=== PATIENT | male | born 1965 | race American Indian/Alaskan Native ===

== ENCOUNTER 2021-01-08 16:03 | Emergency (ER) | payer MEDICAID ==
--- NOTE | 2021-01-08 16:33 | Emergency Department Report ---
ED Chest Pain HPI - General Chief Complaint: Chest Pain Stated Complaint: CHEST PAIN Time Seen by Provider: 01/08/21 16:21 Source: EMS Mode of arrival: Stretcher Limitations: No Limitations - History of Present Illness Initial Comments: 55-year-old male, history of hypertension, sleep apnea, GERD, noncompliant with medications x1 year, presents to ED with chest pain. Patient states he recently moved to the [facility]. Patient states he was on break at work, stepped outside to smoke half of a cigarette, came back in and began experiencing severe chest pain. States pain was substernal, pressure-like, nonradiating. He reports associated diaphoresis. He denies any nausea or vomiting. Patient states he has been having some chest pain and dyspnea on exertion over the past week. Patient states the chest pain was much worse today. He also states that he has noticed some edema in bilateral lower extremities and his abdominal area. Patient denies any history of congestive heart failure. Patient reports tobacco and marijuana use. Denies any other drugs. Reports only occasional alcohol use. Patient denies having received his COVID-19 vaccine. MD Complaint: chest pain -: hour(s) (3) Onset: during rest Pain Location: substernal Pain Radiation: none Severity: severe Severity scale (0 -10): 8 Quality: pressure Consistency: constant Improves With: nothing Worsens With: nothing Other Symptoms: cough, leg swelling. denies: fever Treatments Prior to Arrival: aspirin - Related Data Previous Rx's Medication Instructions Recorded Last Taken Type Aspirin 325 mg PO QDAY #30 tablet 01/08/21 Unknown Rx Simvastatin 10 mg PO QHS #30 tablet 01/08/21 Unknown Rx amLODIPine 10 mg PO DAILY #30 tab 01/08/21 Unknown Rx hydroCHLOROthiazide [Hctz] 12.5 mg PO QDAY #30 capsule 01/08/21 Unknown Rx Allergies Allergy/AdvReac Type Severity Reaction Status Date / Time lisinopril Allergy Angioedema Verified 01/08/21 16:14 Heart Score - HEART Score History: Moderately suspicious EKG: Non-specific Age: 45-65 Risk factors: > 3 risk factors or hx of atherosclerotic disease Troponin: < normal limit HEART Score: 5 - EKG Read Time Time EKG Completed: 16:19 EKG Read Time: 16:19 ED Review of Systems ROS: Stated complaint: CHEST PAIN Other details as noted in HPI Comment: All other systems reviewed and negative Constitutional: denies: fever Respiratory: cough, orthopnea, SOB with exertion Cardiovascular: chest pain, edema Gastrointestinal: denies: nausea, vomiting ED Past Medical Hx - Social History Smoking Status: Current Every Day Smoker Substance Use Type: Marijuana - Medications Home Medications: Home Medications Medication Instructions Recorded Confirmed Last Taken Type Aspirin 325 mg PO QDAY #30 tablet 01/08/21 Unknown Rx Simvastatin 10 mg PO QHS #30 tablet 01/08/21 Unknown Rx amLODIPine 10 mg PO DAILY #30 tab 01/08/21 Unknown Rx hydroCHLOROthiazide [Hctz] 12.5 mg PO QDAY #30 capsule 01/08/21 Unknown Rx ED Physical Exam - General Limitations: No Limitations General appearance: alert, in no apparent distress, obese - Head Head exam: Present: atraumatic, normocephalic - Eye Eye exam: Present: normal appearance, EOMI - ENT ENT exam: Present: mucous membranes moist - Neck Neck exam: Present: normal inspection - Respiratory Respiratory exam: Present: normal lung sounds bilaterally. Absent: respiratory distress - Cardiovascular Cardiovascular Exam: Present: normal rhythm, tachycardia - GI/Abdominal GI/Abdominal exam: Present: soft, other (2+ pitting edema to abdominal wall). Absent: distended, tenderness - Extremities Exam Extremities exam: Present: normal inspection, other (2+ pitting edema BLE) - Neurological Exam Neurological exam: Present: alert, oriented X3 - Psychiatric Psychiatric exam: Present: normal affect, normal mood - Skin Skin exam: Present: warm, dry, intact, normal color ED Course Vital Signs 01/08/21 01/08/21 01/08/21 16:07 16:12 16:49 Temperature 98.9 F Pulse Rate 145 H 143 H 139 H Respiratory 22 19 Rate Blood Pressure 168/124 Blood Pressure 179/120 [Left] O2 Sat by Pulse 98 98 Oximetry 01/08/21 01/08/21 01/08/21 16:57 18:05 18:13 Temperature Pulse Rate 144 H 137 H 140 H Respiratory 19 20 Rate Blood Pressure 179/117 Blood Pressure 165/112 179/117 [Left] O2 Sat by Pulse 97 97 Oximetry 01/08/21 01/08/21 01/08/21 18:14 18:19 18:25 Temperature Pulse Rate 142 H 141 H 118 H Respiratory 19 Rate Blood Pressure 173/122 Blood Pressure 165/110 [Left] O2 Sat by Pulse 99 Oximetry 01/08/21 01/08/21 18:55 18:59 Temperature Pulse Rate 108 H 124 H Respiratory 19 Rate Blood Pressure 165/110 Blood Pressure 165/100 [Left] O2 Sat by Pulse 100 Oximetry ED Medical Decision Making - Lab Data Result diagrams: 01/08/21 16:41 01/08/21 16:41 - EKG Data -: EKG Interpreted by Ne EKG shows normal: sinus rhythm Rate: tachycardia (rate 143) - EKG Data Interpretation: nonspecific ST-T wave sivan, other (RBBB, prolonged QT) - Radiology Data Radiology results: report reviewed, image reviewed - Medical Decision Making 55-year-old male presents to ED with chest pain, elevated blood pressure, tachycardia. EKG shows right bundle branch block, no ST elevations present. Patient has been given aspirin by EMS. He received sublingual nitro, hydralazine here in the ED for blood pressure management. Blood pressure did improve. Patient underwent CTA, which was negative for PE or any other pathology. BNP is elevated, however no evidence of pulmonary edema. Patient does have 2+ pitting edema to bilateral lower extremities and abdominal wall. Patient was initially tachycardic into the 140s, however this tachycardia improved greatly with metoprolol. Troponin is negative. Chest pain improved with aspirin and nitro. Patient may have new onset CHF. I spoke with Dr. Frances, hospitalist, regarding admission and further management. - Differential Diagnosis ACS, PE, new onset CHF Critical Care Time: Yes Critical care time in (mins) excluding proc time.: 35 Critical care attestation.: If time is entered above; I have spent that time in minutes in the direct care of this critically ill patient, excluding procedure time. Critical Care Time: 35 min ED Disposition Clinical Impression: Hypertensive emergency, Peripheral edema, Acute chest pain, Tachycardia Disposition: OP ADMIT IP TO THIS HOSP Is pt being admited?: Yes Condition: Stable Instructions: Chest Pain (ED), Hypertension (ED) Prescriptions: Simvastatin 10 mg PO QHS #30 tablet amLODIPine 10 mg PO DAILY #30 tab Aspirin 325 mg PO QDAY #30 tablet hydroCHLOROthiazide [Hctz] 12.5 mg PO QDAY #30 capsule Referrals: PRIMARY CARE, [Primary Care Provider] - 3-5 Days Time of Disposition: 18:37
[2021-01-08] MEDS ORDERED: ASPIRIN 325 MG TAB PO ONE (16:35)
[2021-01-08] MEDS ORDERED: hydrALAZINE 20 MG/1 ML INJ IV ONE (16:37)
[2021-01-08] MEDS ORDERED: NITROGLYCERIN 0.4 MG TAB SUBL SL PRN (16:39)
[2021-01-08 16:59] LABS: Basophils # (Auto) 0.1 K/mm3 (0.0-0.1); Basophils % (Auto) 0.7 % (0.0-1.8); Eosinophils # (Auto) 0.1 K/mm3 (0.0-0.4); Eosinophils % (Auto) 0.8 % (0.0-4.3); Hematocrit 41.4 % (35.5-45.6); Hemoglobin 14.3 gm/dl (11.8-15.2); Lymphocytes # (Auto) 1.3 K/mm3 (1.2-5.4); Lymphocytes % (Auto) 12.3 % (13.4-35.0); Mean Corpuscular HGB Conc 35 % (32-34); Mean Corpuscular Volume 92 fl (84-94); Monocytes # (Auto) 0.7 K/mm3 (0.0-0.8); Monocytes % (Auto) 6.5 % (0.0-7.3); Platelet Count 206 K/mm3 (140-440); Red Cell Distribution Width 15.7 % (13.2-15.2)
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
[2021-01-08 17:13] LABS: BUN/Creatinine Ratio 12; Blood Urea Nitrogen 12 mg/dL (9-20); Calcium 8.7 mg/dL (8.4-10.2); Hemolysis Index 13
[2021-01-08 17:18] LABS: Albumin 3.4 g/dL (3.9-5); Bilirubin,Direct 0.3 mg/dL (0-0.2)
[2021-01-08 17:22] LABS: INR 1.04 (0.87-1.13)
[2021-01-08 17:23] LABS: Partial Thromboplastin Time 25.2 Sec. (24.2-36.6)
[2021-01-08] MEDS ORDERED: hydrALAZINE 10 MG TAB PO ONE (18:04)
--- NOTE | 2021-01-08 18:04 | Cat Scan Report ---
CTA chest with contrast INDICATION : chest pain. TECHNIQUE: Axial imaging performed through the chest, with contrast bolus timing set to maximize opa cification of the pulmonary arteries. 3-plane MIP reformatted images were obtained. All CT scans at this location are performed using CT dose reduction for ALARA by means of automated exposure control. 100 mL of intravenous contrast administered. COMPARISON: None FINDINGS: Bolus/PTE: Contrast bolus timing is adequate. No filling defect is present to suggest PTE. Mediastinum: Heart and great vessels appear normal. No pathologic mediastinal adenopathy. Lungs: Mild emphysematous changes in the lungs. No consolidation or effusion. Lungs are otherwise cl ear. Upper abdomen: Limited imaging of the upper abdomen shows nothing acute. Bones: Degenerative changes in the spine with nothing acute. IMPRESSION: Negative for PTE. Clear lungs. Signer Name: Lionel Rider MD Signed: 01/08/2021 6:00 PM Workstation Name: [email or web address]
[2021-01-08] MEDS ORDERED: METOPROLOL TARTRATE 5 MG/5 ML INJ IV ONE (18:15)
--- NOTE | 2021-01-08 18:38 | Event Note ---
Date: 01/08/21 55 YO Male with HTN, GERD, HLD Noncompliant with medication, CHAPIN noncompliant with CPAP presents to ED for evaluation. Patient seen and evaluated in the emergency department. All lab and imaging studies reviewed. Patient complained of chest pain. Upon further questioning and evaluationthe patient localizes the site of his pain in the epigastric area. Patient states that pain is burning in nature, associated with meals, nonradiating. Patient treated" with chest pain protocol. EKG unremarkable without evidence of acute ischemia. D-dimer was elevated but patient underwent CT of the chest which was negative for pulmonary embolus. Patient treated with antihypertensive therapy, as well as PPI therapy with improvement in symptoms. Patient medically optimized and back to usual state of health. Patient counseled regarding increase physical activity at discharge, balanced diet, weight reduction. Patient informed of importance of compliance with CPAP as well as antihypertensive medication. Patient symptoms consistent with atypical chest pain secondary to gastroesophageal reflux disease. Patient discharged home instructed to follow- up with primary care physician within 1 week, cardiology within 1 week, and pulmonary within 1 week for sleep study. Patient instructed to maintain blood pressure log and daily weight log. Patient instructed to follow with primary care physician for age-appropriate screening test as well as risk factor appropriate screening testing. ED Physical Exam - General Limitations: No Limitations General appearance: alert, in no apparent distress, obese - Head Head exam: Present: atraumatic, normocephalic - Eye Eye exam: Present: normal appearance, EOMI - ENT ENT exam: Present: mucous membranes moist - Neck Neck exam: Present: normal inspection - Respiratory Respiratory exam: Present: normal lung sounds bilaterally. Absent: respiratory distress - Cardiovascular Cardiovascular Exam: Present: normal rhythm, tachycardia - GI/Abdominal GI/Abdominal exam: Present: soft, protuberant, obese . Absent: distended, tenderness - Extremities Exam Extremities exam: Present: normal inspection, other (2+ pitting edema BLE) - Neurological Exam Neurological exam: Present: alert, oriented X3 - Psychiatric Psychiatric exam: Present: normal affect, normal mood - Skin Skin exam: Present: warm, dry, intact, normal color
[2021-01-08] MEDS ORDERED: hydroCHLOROthiazide 25 MG TAB PO ONE (19:00)
[2021-01-08] MEDS ORDERED: amLODIPine 5 MG TAB PO ONE (19:00)
[2021-01-08] MEDS ORDERED: PANTOPRAZOLE 40 MG TAB PO ONE (20:00)
[2021-01-08 21:24] VITALS: BP 141/84
--- NOTE | 2021-01-09 17:59 | Electrocardiograph Report ---
[facility] Test Date: 2021-01-08 Test Time: 16:19:41 Pat Name: MIHAELA JIMÉNEZ Department: Room: Gender: M Senior Sales Administrator: NURSE : 1965 Requested By: CURTIS GUTIERREZ Order Number: [id number] Reading MD: Epi Yang Measurements Intervals [place] Rate: 143 P: 78 ID: [id number] QRS: -83 QRSD: 119 T: -64 QT: 345 QTc: 532 Interpretive Statements Atrial flutter with 2-1 AV conduction Incomplete right bundle branch block Prolonged QT interval No previous ECG available for comparison Electronically Signed On 01-09-2021 17:59:16 EDT by Epi Yang
[2021-01-10 01:15] LABS: Chol/HDL Ratio 2.51 %
== END 2021-01-08 21:52 | disposition admitted as inpatient to this hospital (09) ==
LOC: ED 16:03 → UNDOADMOB 18:37 → 4A 18:37 → ED 21:52
DX: I16.1 Hypertensive emergency (principal); R00.0 Tachycardia, unspecified; R60.9 Edema, unspecified; F17.200 Nicotine dependence, unspecified, uncomplicated; F12.90 Cannabis use, unspecified, uncomplicated
CPT/HCPCS: 36415; 71045; 71275; 80048; 80061; 80076; 83880; 84484; 85025; 85379; 85610; 85730; 93005; 96374; 96375; 99285; J0360; Q9967

== ENCOUNTER 2021-03-30 15:34 | Inpatient (IN) | payer MEDICAID ==
[2021-03-30] MEDS ORDERED: dilTIAZem 25 MG/5 ML INJ IV ONE ×2 (17:22→22:17)
[2021-03-30] MEDS ORDERED: ASPIRIN 325 MG TAB PO ONE (17:22)
[2021-03-30 17:23] LABS: Basophils # (Auto) 0.1 K/mm3 (0.0-0.1); Eosinophils # (Auto) 0.5 K/mm3 (0.0-0.4); Hematocrit 39.6 % (35.5-45.6); Hemoglobin 13.4 gm/dl (11.8-15.2); Lymphocytes # (Auto) 2.3 K/mm3 (1.2-5.4); Lymphocytes % (Auto) 24.3 % (13.4-35.0); Mean Corpuscular HGB Conc 34 % (32-34); Mean Corpuscular Volume 91 fl (84-94); Monocytes # (Auto) 0.9 K/mm3 (0.0-0.8); Monocytes % (Auto) 9.9 % (0.0-7.3); Platelet Count 182 K/mm3 (140-440); Red Blood Count 4.34 M/mm3 (3.65-5.03); Red Cell Distribution Width 15.2 % (13.2-15.2)
[2021-03-30 17:45] LABS: BUN/Creatinine Ratio 14; Blood Urea Nitrogen 15 mg/dL (9-20); Calcium 8.8 mg/dL (8.4-10.2); Hemolysis Index 14
--- NOTE | 2021-03-30 17:46 | Emergency Department Report ---
ED Chest Pain HPI - General Chief Complaint: Chest Pain Stated Complaint: PAIN WITH DEEP BREATHING, DIZZINESS Time Seen by Provider: 03/30/21 16:23 Source: patient Mode of arrival: Ambulatory Limitations: No Limitations - History of Present Illness Initial Comments: 55-year-old male, history of acid reflux, hypertension, presents to ED with chest pain and near syncope. Patient states he was walking and suddenly felt palpitations, sharp chest pain, and lightheadedness. He denies any shortness of breath, nausea or vomiting, diaphoresis. He denies any leg pain or swelling. Patient states he has been out of his hypertension medication for some time now. Patient states he was previously seen in this ED and discharged with prescriptions and instructions to follow-up on an outpatient basis. Patient states he has been unable to obtain an appointment due to lack of insurance. Patient reports tobacco and marijuana use. MD Complaint: chest pain -: This afternoon Onset: during exertion Pain Location: substernal Pain Radiation: none Severity: moderate Severity scale (0 -10): 6 Quality: sharp Consistency: constant Improves With: nothing Worsens With: nothing re: denies: nausea, vomting, diaphoresis, dyspnea Other Symptoms: palpitations, other (Near syncope). denies: cough, fever, leg swelling - Related Data Home Medications Medication Instructions Recorded Confirmed Last Taken No Known Home Medications [No 03/30/21 03/30/21 Unknown Reported Home Medications] Allergies Allergy/AdvReac Type Severity Reaction Status Date / Time lisinopril Allergy Angioedema Verified 01/08/21 16:14 Heart Score - HEART Score History: Moderately suspicious EKG: Non-specific Age: 45-65 Risk factors: 1-2 risk factors Troponin: < normal limit HEART Score: 4 - EKG Read Time Time EKG Completed: 15:45 EKG Read Time: 15:49 ED Review of Systems ROS: Stated complaint: PAIN WITH DEEP BREATHING, DIZZINESS Other details as noted in HPI Comment: All other systems reviewed and negative Constitutional: denies: chills, fever Respiratory: denies: cough, shortness of breath Cardiovascular: chest pain, palpitations, other (Reports near syncope) Gastrointestinal: denies: nausea, vomiting Musculoskeletal: other (Denies any leg pain or swelling) ED Past Medical Hx - Past Medical History Previous Medical History?: Yes Hx Hypertension: Yes Hx GERD: Yes - Social History Smoking Status: Never Smoker Substance Use Type: Marijuana - Medications Home Medications: Home Medications Medication Instructions Recorded Confirmed Last Taken Type No Known Home Medications [No 03/30/21 03/30/21 Unknown History Reported Home Medications] ED Physical Exam - General Limitations: No Limitations General appearance: alert, in no apparent distress - Head Head exam: Present: atraumatic, normocephalic - Eye Eye exam: Present: normal appearance, EOMI - ENT ENT exam: Present: mucous membranes moist - Neck Neck exam: Present: normal inspection - Respiratory Respiratory exam: Present: normal lung sounds bilaterally. Absent: respiratory distress - Cardiovascular Cardiovascular Exam: Present: regular rate, tachycardia - GI/Abdominal GI/Abdominal exam: Present: soft. Absent: distended, tenderness - Extremities Exam Extremities exam: Present: normal inspection. Absent: pedal edema, calf tenderness - Neurological Exam Neurological exam: Present: alert, oriented X3 - Psychiatric Psychiatric exam: Present: normal affect, normal mood - Skin Skin exam: Present: warm, dry, intact, normal color ED Course Vital Signs 03/30/21 03/30/21 03/30/21 15:40 15:58 16:56 Temperature 98.0 F 98.0 F Pulse Rate 141 H 141 H Respiratory 22 16 18 Rate Blood Pressure 149/107 Blood Pressure 149/107 [Right] O2 Sat by Pulse 99 99 Oximetry 03/30/21 03/30/21 03/30/21 16:59 17:00 17:16 Temperature Pulse Rate 138 H 138 H Respiratory 16 23 22 Rate Blood Pressure 163/115 169/118 Blood Pressure [Right] O2 Sat by Pulse 97 98 99 Oximetry 03/30/21 03/30/21 03/30/21 17:30 17:35 17:46 Temperature Pulse Rate 139 H 140 H 75 Respiratory 20 20 Rate Blood Pressure 177/117 170/117 177/117 Blood Pressure [Right] O2 Sat by Pulse 99 97 Oximetry 03/30/21 03/30/21 03/30/21 18:00 18:16 18:30 Temperature Pulse Rate 68 92 H 106 H Respiratory 21 15 21 Rate Blood Pressure 128/82 131/91 125/93 Blood Pressure [Right] O2 Sat by Pulse 97 98 99 Oximetry 03/30/21 03/30/21 03/30/21 18:40 18:50 19:00 Temperature Pulse Rate 102 H 93 H 102 H Respiratory 15 23 22 Rate Blood Pressure 140/98 130/97 130/97 Blood Pressure [Right] O2 Sat by Pulse 98 95 98 Oximetry 03/30/21 03/30/21 03/30/21 19:10 19:20 19:30 Temperature Pulse Rate 110 H 112 H 137 H Respiratory 21 16 29 H Rate Blood Pressure 135/97 145/96 145/96 Blood Pressure [Right] O2 Sat by Pulse 96 96 98 Oximetry 03/30/21 03/30/21 03/30/21 19:40 19:50 20:00 Temperature Pulse Rate 102 H 108 H 110 H Respiratory 14 16 14 Rate Blood Pressure 141/93 145/99 145/99 Blood Pressure [Right] O2 Sat by Pulse 100 95 98 Oximetry 03/30/21 03/30/21 03/30/21 20:10 20:20 20:30 Temperature Pulse Rate 138 H Respiratory 15 16 16 Rate Blood Pressure 152/125 152/125 152/125 Blood Pressure [Right] O2 Sat by Pulse 99 Oximetry 03/30/21 03/30/21 03/30/21 20:40 20:50 21:00 Temperature Pulse Rate 123 H 137 H Respiratory 19 13 21 Rate Blood Pressure 152/125 137/106 137/106 Blood Pressure [Right] O2 Sat by Pulse 96 99 Oximetry 03/30/21 03/30/21 03/30/21 21:10 21:20 21:30 Temperature Pulse Rate 137 H 138 H 137 H Respiratory 15 14 18 Rate Blood Pressure 155/117 156/118 156/118 Blood Pressure [Right] O2 Sat by Pulse 97 96 98 Oximetry 03/30/21 03/30/21 03/30/21 21:40 21:45 21:50 Temperature Pulse Rate 137 H 137 H 88 Respiratory 17 13 Rate Blood Pressure 154/114 154/114 Blood Pressure [Right] O2 Sat by Pulse 98 97 Oximetry 03/30/21 03/30/21 03/30/21 22:00 22:10 22:20 Temperature Pulse Rate 86 91 H 90 Respiratory 18 19 19 Rate Blood Pressure 154/114 136/90 136/90 Blood Pressure [Right] O2 Sat by Pulse 99 96 97 Oximetry 03/30/21 03/30/21 03/30/21 22:30 22:40 22:50 Temperature Pulse Rate 82 92 H 81 Respiratory 25 H 22 22 Rate Blood Pressure 154/114 154/114 154/114 Blood Pressure [Right] O2 Sat by Pulse 97 95 97 Oximetry 03/30/21 03/30/21 03/30/21 23:00 23:10 23:20 Temperature Pulse Rate 118 H 118 H 113 H Respiratory 16 22 22 Rate Blood Pressure 136/90 136/90 136/90 Blood Pressure [Right] O2 Sat by Pulse 95 91 99 Oximetry 03/30/21 03/30/21 03/30/21 23:30 23:40 23:50 Temperature Pulse Rate 113 H 114 H 112 H Respiratory 16 14 12 Rate Blood Pressure 136/90 136/90 136/90 Blood Pressure [Right] O2 Sat by Pulse 98 94 96 Oximetry - Consultations Consultation #1: 03/30/21 18:[address] Todd, cardiology percussion teacher, regarding the patient. Will consult on the patient. ED Medical Decision Making - Lab Data Result diagrams: 03/30/21 17:14 03/30/21 17:14 - EKG Data -: EKG Interpreted by Wy EKG shows normal: QRS complexes Rate: tachycardia (rate 139) - EKG Data Interpretation: other (Atrial flutter with RVR; prolonged QT) - Radiology Data Radiology results: report reviewed, image reviewed - Medical Decision Making 55-year-old male presents to ED with chest pain, near syncope. Patient found to be in a flutter with RVR. Initially hypertensive. Cardizem was given. BP and heart rate much improved. Repeat EKG shows atrial flutter with rate of 84 following cardizem. Troponin is negative. Patient reports improvement of lightheadedness and chest pain with improved vitals. I spoke with Dr. Todd, tar pot man, who agrees with admission. Will consult on the patient. Patient will be admitted by hospitalist, Dr. Frances. - Differential Diagnosis ACS, arrhythmia, CHF Critical Care Time: Yes Critical care time in (mins) excluding proc time.: 35 Critical care attestation.: If time is entered above; I have spent that time in minutes in the direct care of this critically ill patient, excluding procedure time. Critical Care Time: 35 min ED Disposition Clinical Impression: Acute chest pain, Hypertensive emergency, Atrial flutter with rapid ventricular response Disposition: ADMITTED INPATIENT Is pt being admited?: Yes Condition: Stable Time of Disposition: 19:19
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
[2021-03-30] MEDS ORDERED: oxyCODONE /ACETAMINOPHEN 5-325MG TAB PO PRN (19:17)
[2021-03-30] MEDS ORDERED: ACETAMINOPHEN 325 MG TAB PO PRN (19:17)
[2021-03-30] MEDS ORDERED: HYDROmorphone 1 MG/1 ML INJ IV PRN (19:17)
[2021-03-30] MEDS ORDERED: ONDANSETRON 4 MG/2 ML INJ IV PRN (19:17)
--- NOTE | 2021-03-30 19:18 | History and Physical Report ---
History of Present Illness Chief complaint: My heart is pounding in my chest History of present illness: 55 YO Male with HTN, GERD, Obesity Hypoventilation Syndrome, Medication Noncompliance presents ED for evaluation. Patient reports "my heart is pounding in my chest". Patient states that he is experienced sudden onset of chest palpitations today. Patient also acknowledges concomitant chest discomfort. Patient transported to [facility] via private vehicle for further care and evaluation of the aforementioned symptoms. The patient was seen and evaluated in the emergency department. All lab and imaging studies reviewed. Patient underwent EKG and was found to have atrial flutter with rapid ventricular response. Patient treated with medical cardioversion with normalization of heart rate and return of normal sinus rhythm. Patient placed in observation status and admitted to telemetry and placed on telemetry monitoring during increased risk of worsening symptoms. Cardiology team consulted in ED. Patient denies fever, chills, chest pain, productive cough, skin rash, recent ill contacts unilateral leg swelling, calf pain, individual/family history of DVT/PE/bleeding/blood clotting disorders, or known exposure to COVID-19. No prior admission for review. No medication listed at time of admission reconciliation. Past History Past Medical History: GERD, hypertension Past Surgical History: No surgical history, Other (Reviewed) Social history: single. denies: smoking, alcohol abuse, prescription drug abuse Family history: diabetes, hypertension Medications and Allergies Allergies Allergy/AdvReac Type Severity Reaction Status Date / Time lisinopril Allergy Angioedema Verified 01/08/21 16:14 Home Medications Medication Instructions Recorded Confirmed Last Taken Type No Known Home Medications [No 03/30/21 03/30/21 Unknown History Reported Home Medications] Review of Systems Constitutional: no weight loss, no weight gain, no fever, no chills Ears, nose, mouth and throat: no ear pain, no tinnitis, no decreased hearing, no nose pain, no nasal discharge Cardiovascular: palpitations, rapid/irregular heart beat, lightheadedness, no chest pain, no orthopnea, no shortness of breath, no dyspnea on exertion, no paroxysmal nocturnal dyspnea, no high blood pressure, no leg edema, no decreased exercise tolerance Respiratory: no cough, no cough with sputum, no excessive sputum, no hemoptysis Gastrointestinal: no abdominal pain, no nausea, no diarrhea, no constipation, no change in bowel habits Genitourinary Male: no hematuria, no flank pain, no discharge, no urinary frequency, no urinary hesitancy Rectal: no pain, no incontinence, no bleeding Musculoskeletal: no neck stiffness, no neck pain, no shooting arm pain, no arm numbness/tingling, no low back pain Integumentary: no rash, no pruritis, no redness, no sores, no boils Neurological: no head injury, no transient paralysis, no parathesias, no numbness, no seizures, no syncope Psychiatric: no anxiety, no sleep disturbances, no insomnia, no hypersomnia, no change in libido, no disorientation, no hallucinations Endocrine: no cold intolerance, no polyphagia, no excessive thirst, no polyuria Hematologic/Lymphatic: no easy bruising, no lymphedema Allergic/Immunologic: no urticaria, no wheezing, no persistent infections, no angioedema Exam - Constitutional Vitals: Temp Pulse Resp BP Pulse Ox 98.0 F 92 H 15 131/91 98 03/30/21 15:58 03/30/21 18:16 03/30/21 18:16 03/30/21 18:16 03/30/21 18:16 General appearance: Present: mild distress - EENT Eyes: Present: PERRL ENT: hearing intact, clear oral mucosa - Neck Neck: Present: supple, normal ROM - Respiratory Respiratory effort: normal Respiratory: bilateral: CTA - Cardiovascular Heart Sounds: Present: S1 & S2. Absent: rub, click - Extremities Extremities: pulses symmetrical, No edema Peripheral Pulses: within normal limits - Abdominal General gastrointestinal: Present: soft, non-tender, non-distended, normal bowel sounds Male genitourinary: Present: normal - Integumentary Integumentary: Present: clear, warm, dry - Musculoskeletal Musculoskeletal: gait normal, strength equal bilaterally - Psychiatric Psychiatric: appropriate mood/affect, intact judgment & insight - Neurologic Neurologic: CNII-XII intact, moves all extremities HEART Score - HEART Score EKG: Non-specific Age: 45-65 Risk factors: 1-2 risk factors Troponin: Troponin T < 0.010 ng/mL (0.00-0.029) 03/30/21 17:14 Troponin: < normal limit Results - Labs CBC & Chem 7: 03/30/21 17:14 03/30/21 17:14 Labs: Abnormal lab results 03/30/21 Range/Units 17:14 Bledsoe % (Auto) 9.9 H (0.0-7.3) % Eos % (Auto) 5.0 H (0.0-4.3) % Bledsoe # (Auto) 0.9 H (0.0-0.8) K/mm3 Eos # (Auto) 0.5 H (0.0-0.4) K/mm3 Assessment and Plan - Patient Problems (1) Atrial flutter with rapid ventricular response Current Visit: Yes Status: Acute Plan to address problem: Medical cardioversion with Cardizem, cardiology team consulted, further care and evaluation as per cardiology team. Echocardiogram ordered and is pending at time of admission, thyroid panel, magnesium level. (2) Hypertensive emergency Current Visit: Yes Status: Acute Plan to address problem: Monitor blood pressure every shift, continue medical management. (3) Obesity (BMI 30-39.9) Current Visit: No Status: Acute Plan to address problem: Balanced diet, increase physical activity discharge, outpatient pulmonary follow-up for sleep study. (4) DVT prophylaxis Current Visit: Yes Status: Acute Plan to address problem: SCDs bilateral lower extremities while in bed, patient is ambulatory.
[2021-03-30 20:02] LABS: Free T4 (Free Thyroxine) 1.23 ng/dL (0.76-1.46)
[2021-03-30 20:09] LABS: INR 1.11 (0.87-1.13)
[2021-03-30 20:11] LABS: Partial Thromboplastin Time 27.2 Sec. (24.2-36.6)
[2021-03-30] MEDS: FAMOTIDINE 10 MG TAB PO SCH (23:01)
[2021-03-31] MEDS ORDERED: dilTIAZem/D5W 100 MG/100 ML BAG IV SCH (01:00)
[2021-03-31] MEDS: dilTIAZem 30 MG TAB PO SCH ×3 (07:16→22:59)
--- NOTE | 2021-03-31 10:37 | Progress Note ---
Assessment and Plan Assessment and plan: Atrial fibrillation with RVR. Accelerated hypertension Obesity. OHS/CHAPIN GERD Medical noncompliance. 03/31/2021. Continue Cardizem drip for now. Await cardiology consultation. Patient will need to be transition to p.o. medications. Rate currently controlled. Follow-up echocardiogram. Defer to cardiology with regards to anticoagulation. BP currently controlled as well. History Interval history: No new issues overnight Hospitalist Physical - Constitutional Vitals: Temp Pulse Resp BP Pulse Ox 98.0 F 102 H 20 108/54 96 03/30/21 15:58 03/31/21 06:00 03/31/21 06:00 03/31/21 06:00 03/31/21 06:00 General appearance: Present: no acute distress - EENT Eyes: Present: PERRL, EOM intact ENT: hearing intact, clear oral mucosa, dentition normal - Neck Neck: Present: supple, normal ROM - Respiratory Respiratory effort: normal Respiratory: bilateral: CTA - Cardiovascular Rhythm: regular Heart Sounds: Present: S1 & S2. Absent: gallop, rub - Extremities Extremities: no ischemia, No edema, Full ROM - Abdominal General gastrointestinal: soft, non-tender, non-distended, normal bowel sounds - Integumentary Integumentary: Present: clear, warm, dry - Neurologic Neurologic: CNII-XII intact, moves all extremities HEART Score - HEART Score EKG: Non-specific Age: 45-65 Risk factors: 1-2 risk factors Troponin: Troponin T < 0.010 ng/mL (0.00-0.029) 03/30/21 19:00 Troponin: < normal limit Results - Labs CBC & Chem 7: 03/30/21 17:14 03/30/21 17:14 Labs: Laboratory Last Values WBC 9.5 K/mm3 (4.5-11.0) 03/30/21 17:14 RBC 4.34 M/mm3 (3.65-5.03) 03/30/21 17:14 Hgb 13.4 gm/dl (11.8-15.2) 03/30/21 17:14 Hct 39.6 % (35.5-45.6) 03/30/21 17:14 MCV 91 fl (84-94) 03/30/21 17:14 MCH 31 pg (28-32) 03/30/21 17:14 MCHC 34 % (32-34) 03/30/21 17:14 RDW 15.2 % (13.2-15.2) 03/30/21 17:14 Plt Count 182 K/mm3 (140-440) 03/30/21 17:14 Lymph % (Auto) 24.3 % (13.4-35.0) 03/30/21 17:14 Forrest % (Auto) 9.9 % (0.0-7.3) H 03/30/21 17:14 Eos % (Auto) 5.0 % (0.0-4.3) H 03/30/21 17:14 Baso % (Auto) 1.0 % (0.0-1.8) 03/30/21 17:14 Lymph # (Auto) 2.3 K/mm3 (1.2-5.4) 03/30/21 17:14 Forrest # (Auto) 0.9 K/mm3 (0.0-0.8) H 03/30/21 17:14 Eos # (Auto) 0.5 K/mm3 (0.0-0.4) H 03/30/21 17:14 Baso # (Auto) 0.1 K/mm3 (0.0-0.1) 03/30/21 17:14 Seg Neutrophils % 59.8 % (40.0-70.0) 03/30/21 17:14 Seg Neutrophils # 5.7 K/mm3 (1.8-7.7) 03/30/21 17:14 PT 14.8 Sec. (12.2-14.9) 03/30/21 17:14 INR 1.11 (0.87-1.13) 03/30/21 17:14 APTT 27.2 Sec. (24.2-36.6) 03/30/21 17:14 Sodium 139 mmol/L (137-145) 03/30/21 17:14 Potassium 4.0 mmol/L (3.6-5.0) 03/30/21 17:14 Chloride 106.8 mmol/L (98-107) 03/30/21 17:14 Carbon Dioxide 25 mmol/L (22-30) 03/30/21 17:14 Anion Gap 11 mmol/L 03/30/21 17:14 BUN 15 mg/dL (9-20) 03/30/21 17:14 Creatinine 1.1 mg/dL (0.8-1.3) 03/30/21 17:14 Estimated GFR > 60 ml/min 03/30/21 17:14 BUN/Creatinine Ratio 14 % 03/30/21 17:14 Glucose 86 mg/dL (75-100) 03/30/21 17:14 Calcium 8.8 mg/dL (8.4-10.2) 03/30/21 17:14 Magnesium 1.70 mg/dL (1.7-2.3) 03/30/21 19:26 Troponin T < 0.010 ng/mL (0.00-0.029) 03/30/21 19:00 NT-Pro-B Natriuret Pep 847.6 pg/mL (0-900) 03/30/21 17:14 TSH 1.680 mlU/mL (0.270-4.200) 03/30/21 19:26 Free T4 1.23 ng/dL (0.76-1.46) 03/30/21 19:26 Active Medications - Current Medications Current Medications: Generic Name Dose Route Start Last Admin Trade Name Freq PRN Reason Stop Dose Admin Acetaminophen 650 mg 03/30/21 19:17 Acetaminophen 325 Mg Tab PO Q4H PRN Pain MILD(1-3)/Fever >100.5/RIVAS Diltiazem HCl 30 mg 03/31/21 00:00 03/31/21 07:16 Diltiazem 30 Mg Tab PO Not Given Q6HR HINA Famotidine 10 mg 03/30/21 22:00 03/30/21 23:01 Famotidine 10 Mg Tab PO 10 mg BID HINA Administration Hydromorphone HCl 0.5 mg 03/30/21 19:17 Hydromorphone 1 Mg/1 Ml Inj IV Q23H PRN Pain , Severe (7-10) Diltiazem HCl 100 mg in 100 mls @ 5 mls/hr 03/31/21 01:00 03/31/21 07:00 Cardizem/D5w 100mg/100ml IV 0 mg/hr TITR HINA 0 mls/hr Titration Protocol 5 MG/HR Ondansetron HCl 4 mg 03/30/21 19:17 Ondansetron 4 Mg/2 Ml Inj IV Q8H PRN Nausea And Vomiting Oxycodone/Acetaminophen 1 tab 03/30/21 19:17 Oxycodone /Acetaminophen 5-325mg Tab PO Q16H PRN Pain, Moderate (4-6) Sodium Chloride 10 ml 03/30/21 22:00 03/30/21 22:56 Sodium Chloride 0.9% 10 Ml Flush Syringe IV 10 ml BID HINA Administration Sodium Chloride 10 ml 03/30/21 19:17 Sodium Chloride 0.9% 10 Ml Flush Syringe IV PRN PRN LINE FLUSH
[2021-03-31] MEDS: FAMOTIDINE 10 MG TAB PO SCH ×2 (11:27→22:45)
[2021-03-31] MEDS ORDERED: HEPARIN 10,000 UNITS/10 ML VIAL IV PRN (14:10)
[2021-03-31] MEDS ORDERED: HEPARIN 10,000 UNITS/10 ML VIAL IV ONE (14:45)
[2021-03-31] MEDS ORDERED: HEPARIN 10,000 UNITS/10 ML VIAL ONE (17:23)
[2021-03-31] MEDS: HEPARIN/ 0.45% NACL DRIP 25,000 UNIT/500 ML BAG IV SCH (17:56)
--- NOTE | 2021-03-31 18:00 | Consultation ---
History of Present Illness Consult date: 03/31/21 Requesting physician: CURTIS GUTIERREZ Consult reason: atrial fibrillation, chest pain History of present illness: Patient is a 55y/o male with a pmhx of HTN and GERD who reported to the ED with a complaint of his heart was pounding x1 day. He reports that yesterday he started having palpitations associated with some chest pain which he described as sharp and was worsened with breathing. He reports the pain is relieved with rest. The He denies nausea, vomiting, lightheadedness. In the ED patient was found to be in Aflutter with RVR and started on Cardizem gtt. Per documentation patient converted to sinus rhythm. 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 Cardiology is consulted for chest pain and atrial flutter. Past History Past Medical History: GERD, hypertension Past Surgical History: No surgical history, Other (Reviewed) Social history: single. denies: smoking, alcohol abuse, prescription drug abuse Family history: diabetes, hypertension Medications and Allergies Allergies Allergy/AdvReac Type Severity Reaction Status Date / Time lisinopril Allergy Angioedema Verified 01/08/21 16:14 Home Medications Medication Instructions Recorded Confirmed Last Taken Type No Known Home Medications [No 03/30/21 03/30/21 Unknown History Reported Home Medications] Active Meds: Active Medications Acetaminophen (Acetaminophen 325 Mg Tab) 650 mg PO Q4H PRN PRN Reason: Pain MILD(1-3)/Fever >100.5/RIVAS Famotidine (Famotidine 10 Mg Tab) 10 mg PO BID [facility] Last Admin: 03/31/21 11:27 Dose: 10 mg Documented by: Hydromorphone HCl (Hydromorphone 1 Mg/1 Ml Inj) 0.5 mg IV Q23H PRN PRN Reason: Pain , Severe (7-10) Heparin Sodium/Sodium Chloride (Heparin/ 0.45% Nacl-25,000 Unit/500 Ml) 25,000 unit in 500 mls @ 30 mls/hr IV TITR HINA; Protocol Losartan Potassium (Losartan 50 Mg Tab) 50 mg PO QDAY [facility] Metoprolol Tartrate (Metoprolol Tartrate 50 Mg Tab) 50 mg PO BID [facility] Ondansetron HCl (Ondansetron 4 Mg/2 Ml Inj) 4 mg IV Q8H PRN PRN Reason: Nausea And Vomiting Oxycodone/Acetaminophen (Oxycodone /Acetaminophen 5-325mg Tab) 1 tab PO Q16H PRN PRN Reason: Pain, Moderate (4-6) Sodium Chloride (Sodium Chloride 0.9% 10 Ml Flush Syringe) 10 ml IV BID HINA Last Admin: 03/30/21 22:56 Dose: 10 ml Documented by: Sodium Chloride (Sodium Chloride 0.9% 10 Ml Flush Syringe) 10 ml IV PRN PRN PRN Reason: LINE FLUSH Review of Systems All systems: negative Constitutional: no weight loss, no weight gain, no fever, no chills Ears, nose, mouth and throat: no tinnitis, no decreased hearing, no nose pain, no nasal congestion Cardiovascular: chest pain, palpitations, rapid/irregular heart beat, lightheadedness, no orthopnea, no edema, no syncope, no shortness of breath, no dyspnea on exertion Respiratory: no cough, no cough with sputum, no hemoptysis, no shortness of breath, no dyspnea on exertion Gastrointestinal: no nausea, no vomiting, no diarrhea Musculoskeletal: no neck stiffness, no neck pain, no shooting arm pain Integumentary: no rash, no pruritis, no redness, no wounds Neurological: no transient paralysis, no paralysis, no weakness, no parathesias Psychiatric: no anxiety, no memory loss Endocrine: no cold intolerance, no heat intolerance Hematologic/Lymphatic: no easy bruising, no easy bleeding Physical Examination Vital Signs Temp Pulse Resp BP Pulse Ox 98.0 F 141 H 22 149/107 99 03/30/21 15:40 03/30/21 15:40 03/30/21 15:40 03/30/21 15:40 03/30/21 15:40 General appearance: no acute distress HEENT: Positive: PERRL Neck: Positive: trachea midline Cardiac: Positive: Reg Rate and Rhythm Lungs: Positive: Normal Breath Sounds Neuro: Positive: Grossly Intact Abdomen: Positive: Soft, Active Bowel Sounds Skin: Negative: Rash, Suspicious Lesions, Ulceration Extremities: Present: upper extr. pulses, lower extr. pulses. Absent: edema Results 03/30/21 17:14 03/30/21 17:14 Coagulation 03/30/21 Range/Units 17:14 PT 14.8 (12.2-14.9) Sec. INR 1.11 (0.87-1.13) APTT 27.2 (24.2-36.6) Sec. - Imaging and Cardiology Echo: report reviewed EKG: report reviewed, image reviewed EKG interpretations - Telemetry EKG Rhythm: Atrial Flutter Assessment and Plan HFrEF ( compensated) Dilated cardiomyopathy HTN Atrial flutter w/RVR * EKG shows aflutter 77 with no acute ischemic changes. Troponins negative x2. AMI ruled * Patient is euvolemic on exam, no SOB, orthopnea, or BLE edema. * Echo 03/30/2021-EF 30 to 35% mild concentric left ventricular hypertrophy, global hypokinesis of left ventricle right ventricle is hypokinetic, mild tricuspid regurg to, the IVC is dilated, left atrium is mildly dilated Plan: Plan for stress test on Saturday. Continue heparin gtt for anticoagulation. Initiate metoprolol 50mg PO BID and titrate as needed for rate control. Initiate Valsartan 50mg PO QD for BP control Patient seen in conjunction with Dr. Pradhan who agrees with this plan of care. Will continue to follow - Patient Problems (1) Acute chest pain Current Visit: Yes Status: Acute (2) Atrial flutter with rapid ventricular response Current Visit: Yes Status: Acute (3) Hypertensive emergency Current Visit: Yes Status: Acute (4) Atypical chest pain Current Visit: No Status: Acute (5) GERD (gastroesophageal reflux disease) Current Visit: No Status: Acute (6) Hypertension Current Visit: No Status: Acute (7) Obesity (BMI 30-39.9) Current Visit: No Status: Acute
[2021-03-31 19:41] LABS: Hematocrit 42.1 % (35.5-45.6); Hemoglobin 14.2 gm/dl (11.8-15.2)
[2021-03-31 20:26] LABS: INR 1.18 (0.87-1.13)
[2021-03-31] MEDS: METOPROLOL TARTRATE 50 MG TAB PO SCH ×2 (22:45→22:59)
[2021-04-01] MEDS ORDERED: MORPHINE 2 MG/1 ML INJ IV ONE (02:10)
[2021-04-01] MEDS: LOSARTAN 50 MG TAB PO SCH (09:08)
[2021-04-01] MEDS: METOPROLOL TARTRATE 50 MG TAB PO SCH (09:08)
[2021-04-01] MEDS: FAMOTIDINE 10 MG TAB PO SCH ×2 (09:08→22:21)
[2021-04-01] MEDS ORDERED: METOPROLOL TARTRATE 50 MG TAB PO SCH (09:52)
[2021-04-01] MEDS: METOPROLOL TARTRATE 100 MG TAB PO SCH ×2 (10:18→22:21)
--- NOTE | 2021-04-01 10:19 | Progress Note ---
Assessment and Plan Assessment and plan: Atrial fibrillation with RVR. Accelerated hypertension Obesity. OHS/CHAPIN GERD Medical noncompliance. 03/31/2021. Continue Cardizem drip for now. Await cardiology consultation. Patient will need to be transition to p.o. medications. Rate currently controlled. Follow-up echocardiogram. Defer to cardiology with regards to anticoagulation. BP currently controlled as well. 04/01/2021. Echocardiogram reveals EF of 30 to 35% with mild concentric left ventricular hypertrophy, global hypokinesis of the left ventricle, right ventricle is hypokinetic, mild tricuspid regurgitation, IVC dilated and left atrium is mildly dilated. Cardiology plans for stress on Saturday and possible DILSHAD cardioversion on Saturday. Continue heparin drip for anticoagulation. Cardizem drip discontinued and patient initiated on metoprolol 50 mg p.o. twice daily. Rate currently is controlled. Therefore, patient will be downgraded to telemetry. Continue Diovan for hypertension. I discussed the case with cardiochanelle pedersen History Interval history: No new issues overnight Hospitalist Physical - Constitutional Vitals: Temp Pulse Resp BP Pulse Ox 99.0 F 106 H 16 140/96 98 03/31/21 19:35 04/01/21 09:08 04/01/21 08:00 04/01/21 09:08 04/01/21 08:00 General appearance: Present: no acute distress - EENT Eyes: Present: PERRL, EOM intact ENT: hearing intact, clear oral mucosa, dentition normal - Neck Neck: Present: supple, normal ROM - Respiratory Respiratory effort: normal Respiratory: bilateral: CTA - Cardiovascular Rhythm: regular Heart Sounds: Present: S1 & S2. Absent: gallop, rub - Extremities Extremities: no ischemia, No edema, Full ROM - Abdominal General gastrointestinal: soft, non-tender, non-distended, normal bowel sounds - Integumentary Integumentary: Present: clear, warm, dry - Neurologic Neurologic: CNII-XII intact, moves all extremities HEART Score - HEART Score EKG: Non-specific Age: 45-65 Risk factors: 1-2 risk factors Troponin: Troponin T < 0.010 ng/mL (0.00-0.029) 03/30/21 19:00 Troponin: < normal limit Results - Labs CBC & Chem 7: 03/31/21 19:26 03/30/21 17:14 Labs: Laboratory Last Values WBC 9.5 K/mm3 (4.5-11.0) 03/30/21 17:14 RBC 4.34 M/mm3 (3.65-5.03) 03/30/21 17:14 Hgb 14.2 gm/dl (11.8-15.2) 03/31/21 19:26 Hct 42.1 % (35.5-45.6) 03/31/21 19:26 MCV 91 fl (84-94) 03/30/21 17:14 MCH 31 pg (28-32) 03/30/21 17:14 MCHC 34 % (32-34) 03/30/21 17:14 RDW 15.2 % (13.2-15.2) 03/30/21 17:14 Plt Count 209 K/mm3 (140-440) 03/31/21 19:26 Lymph % (Auto) 24.3 % (13.4-35.0) 03/30/21 17:14 [place] % (Auto) 9.9 % (0.0-7.3) H 03/30/21 17:14 Eos % (Auto) 5.0 % (0.0-4.3) H 03/30/21 17:14 Baso % (Auto) 1.0 % (0.0-1.8) 03/30/21 17:14 Lymph # (Auto) 2.3 K/mm3 (1.2-5.4) 03/30/21 17:14 [place] # (Auto) 0.9 K/mm3 (0.0-0.8) H 03/30/21 17:14 Eos # (Auto) 0.5 K/mm3 (0.0-0.4) H 03/30/21 17:14 Baso # (Auto) 0.1 K/mm3 (0.0-0.1) 03/30/21 17:14 Seg Neutrophils % 59.8 % (40.0-70.0) 03/30/21 17:14 Seg Neutrophils # 5.7 K/mm3 (1.8-7.7) 03/30/21 17:14 PT 15.5 Sec. (12.2-14.9) H 03/31/21 19:26 INR 1.18 (0.87-1.13) H 03/31/21 19:26 APTT 83.0 Sec. (24.2-36.6) H* 03/31/21 19:26 Heparin Anti-Xa Level 0.53 U.I./ml (0.3-0.7) 04/01/21 08:52 Sodium 139 mmol/L (137-145) 03/30/21 17:14 Potassium 4.0 mmol/L (3.6-5.0) 03/30/21 17:14 Chloride 106.8 mmol/L (98-107) 03/30/21 17:14 Carbon Dioxide 25 mmol/L (22-30) 03/30/21 17:14 Anion Gap 11 mmol/L 03/30/21 17:14 BUN 15 mg/dL (9-20) 03/30/21 17:14 Creatinine 1.1 mg/dL (0.8-1.3) 03/30/21 17:14 Estimated GFR > 60 ml/min 03/30/21 17:14 BUN/Creatinine Ratio 14 % 03/30/21 17:14 Glucose 86 mg/dL (75-100) 03/30/21 17:14 Calcium 8.8 mg/dL (8.4-10.2) 03/30/21 17:14 Magnesium 1.70 mg/dL (1.7-2.3) 03/30/21 19:26 Troponin T < 0.010 ng/mL (0.00-0.029) 03/30/21 19:00 NT-Pro-B Natriuret Pep 847.6 pg/mL (0-900) 03/30/21 17:14 TSH 1.680 mlU/mL (0.270-4.200) 03/30/21 19:26 Free T4 1.23 ng/dL (0.76-1.46) 03/30/21 19:26 Wharton/IV: Voiding Method Urinal Active Medications - Current Medications Current Medications: Generic Name Dose Route Start Last Admin Trade Name Freq PRN Reason Stop Dose Admin Acetaminophen 650 mg 03/30/21 19:17 Acetaminophen 325 Mg Tab PO Q4H PRN Pain MILD(1-3)/Fever >100.5/RIVAS Famotidine 10 mg 03/30/21 22:00 04/01/21 09:08 Famotidine 10 Mg Tab PO 10 mg BID HINA Administration Hydromorphone HCl 0.5 mg 03/30/21 19:17 Hydromorphone 1 Mg/1 Ml Inj IV Q23H PRN Pain , Severe (7-10) Heparin Sodium/Sodium Chloride 25,000 unit in 500 mls @ 30 mls/hr 03/31/21 15:00 04/01/21 09:44 Heparin/ 0.45% Nacl-25,000 Unit/500 Ml IV 1,300 units/hr TITR HINA 26 mls/hr Titration Protocol 1,500 UNITS/HR Losartan Potassium 50 mg 04/01/21 10:00 04/01/21 09:08 Losartan 50 Mg Tab PO 50 mg QDAY HINA Administration Metoprolol Tartrate 100 mg 04/01/21 10:00 Metoprolol Tartrate 100 Mg Tab PO BID HINA Ondansetron HCl 4 mg 03/30/21 19:17 Ondansetron 4 Mg/2 Ml Inj IV Q8H PRN Nausea And Vomiting Oxycodone/Acetaminophen 1 tab 03/30/21 19:17 Oxycodone /Acetaminophen 5-325mg Tab PO Q16H PRN Pain, Moderate (4-6) Sodium Chloride 10 ml 03/30/21 22:00 04/01/21 10:13 Sodium Chloride 0.9% 10 Ml Flush Syringe IV Not Given BID HINA Sodium Chloride 10 ml 03/30/21 19:17 Sodium Chloride 0.9% 10 Ml Flush Syringe IV PRN PRN LINE FLUSH
--- NOTE | 2021-04-01 10:59 | Progress Note ---
Assessment and Plan 55-year-old male with obesity has new onset atrial flutter increase metoprolol 100 mg twice a day patient is found to have cardiomyopathy continue losartan. Patient has some difficulty taking deep breath add Lasix 40 mg. Continue IV heparin. Ischemic evaluation and possible DILSHAD cardioversion once stabilized - Patient Problems (1) Systolic heart failure Current Visit: Yes Status: Acute Qualifiers: Heart failure chronicity: acute Qualified Code(s): I50.21 - Acute systolic (congestive) heart failure (2) Acute respiratory failure with hypoxia Current Visit: Yes Status: Acute (3) Atrial flutter with rapid ventricular response Current Visit: Yes Status: Acute (4) Hypertensive emergency Current Visit: Yes Status: Acute (5) Obesity (BMI 30-39.9) Current Visit: No Status: Acute Subjective Date of service: 04/01/21 Principal diagnosis: chf and aflutter Interval history: diffcult to take a breath Objective Vital Signs Temp Pulse Pulse Resp BP BP Pulse Ox 04/01/21 10:32 99 H 142/113 04/01/21 09:08 104 H 140/96 04/01/21 08:00 87 16 98 04/01/21 07:31 15 153/102 98 04/01/21 07:01 21 141/104 96 04/01/21 06:31 23 148/73 97 04/01/21 05:31 94 H 24 158/115 97 04/01/21 05:01 91 H 22 170/139 98 04/01/21 04:31 101 H 23 151/118 98 04/01/21 04:01 94 H 15 151/118 100 04/01/21 03:31 99 H 16 158/110 100 04/01/21 03:10 18 04/01/21 03:01 90 11 L 158/101 100 04/01/21 02:43 105 H 16 96 04/01/21 02:40 18 04/01/21 02:00 90 20 170/125 88 04/01/21 01:30 82 L 04/01/21 01:00 11 L 170/125 94 04/01/21 00:30 91 H 21 170/125 96 04/01/21 00:00 90 21 174/125 03/31/21 23:30 97 H 15 165/98 93 03/31/21 23:00 91 H 26 H 151/112 03/31/21 22:45 92 H 142/110 03/31/21 22:30 12 142/110 94 03/31/21 22:12 19 152/109 98 03/31/21 22:00 12 152/109 96 03/31/21 21:30 10 L 164/124 97 03/31/21 21:00 26 H 159/112 03/31/21 20:30 101 H 24 143/107 94 03/31/21 20:00 97 H 16 159/112 95 03/31/21 19:35 99.0 F 90 17 144/94 95 03/31/21 19:30 144/94 95 03/31/21 19:00 134/89 94 03/31/21 17:46 91 H 124/84 98 03/31/21 17:30 124/84 97 03/31/21 17:16 124/84 97 03/31/21 17:02 124/84 96 03/31/21 16:30 150/111 98 03/31/21 16:16 145/100 99 03/31/21 16:00 145/100 99 03/31/21 15:46 147/106 97 03/31/21 15:30 147/106 97 03/31/21 15:16 145/100 99 03/31/21 15:00 145/100 99 03/31/21 14:46 148/104 98 03/31/21 14:30 148/104 95 03/31/21 14:16 140/107 93 03/31/21 14:00 140/107 89 03/31/21 13:46 130/97 88 03/31/21 13:30 130/97 95 03/31/21 13:16 140/105 90 03/31/21 13:00 140/105 92 03/31/21 12:46 139/118 95 03/31/21 12:30 139/118 97 03/31/21 12:16 138/94 99 03/31/21 12:00 154/110 96 03/31/21 11:46 133/81 98 03/31/21 11:30 138/94 98 03/31/21 11:28 104 H 138/94 03/31/21 11:16 133/81 99 03/31/21 11:00 133/81 91 - Physical Examination General: No Apparent Distress HEENT: Positive: PERRL Neck: Positive: trachea midline Cardiac: Positive: Irregularly Regular Lungs: Positive: clear to auscultation Neuro: Positive: Grossly Intact Abdomen: Positive: Soft, Active Bowel Sounds Skin: Negative: Rash, Suspicious Lesions, Ulceration Extremities: Present: upper extr. pulses, lower extr. pulses. Absent: edema - Labs and Meds Coagulation 03/31/21 Range/Units 19:26 PT 15.5 H (12.2-14.9) Sec. INR 1.18 H (0.87-1.13) APTT 83.0 H* (24.2-36.6) Sec. CBC 03/31/21 Range/Units 19:26 Hgb 14.2 (11.8-15.2) gm/dl Hct 42.1 (35.5-45.6) % Plt Count 209 (140-440) K/mm3 - Imaging and Cardiology EKG: report reviewed, image reviewed Echo: report reviewed - Telemetry EKG Rhythm: Atrial Flutter
[2021-04-01] MEDS ORDERED: METOPROLOL TARTRATE 50 MG TAB PO ONE (11:00)
[2021-04-01] MEDS: FUROSEMIDE 40 MG/4 ML INJ IV SCH (13:00)
[2021-04-01] MEDS: HEPARIN/ 0.45% NACL DRIP 25,000 UNIT/500 ML BAG IV SCH (13:11)
[2021-04-01 14:36] LABS: C-Reactive Protein 0.5 mg/dL (0.00-1.30)
[2021-04-02 06:28] LABS: Hematocrit 41.8 % (35.5-45.6); Hemoglobin 14.3 gm/dl (11.8-15.2)
[2021-04-02 06:40] LABS: BUN/Creatinine Ratio 14; Blood Urea Nitrogen 13 mg/dL (9-20); Calcium 8.9 mg/dL (8.4-10.2); Hemolysis Index 2
[2021-04-02] MEDS: METOPROLOL TARTRATE 100 MG TAB PO SCH ×2 (09:04→21:07)
[2021-04-02] MEDS: LOSARTAN 50 MG TAB PO SCH (09:04)
[2021-04-02] MEDS: FAMOTIDINE 10 MG TAB PO SCH ×2 (09:04→21:07)
[2021-04-02] MEDS: FUROSEMIDE 40 MG/4 ML INJ IV SCH (09:04)
--- NOTE | 2021-04-02 09:36 | Progress Note ---
Assessment and Plan Assessment and plan: New onset atrial fibrillation with RVR. Accelerated hypertension Obesity. OHS/CHAPIN GERD Medical noncompliance. 03/31/2021. Continue Cardizem drip for now. Await cardiology consultation. Patient will need to be transition to p.o. medications. Rate currently controlled. Follow-up echocardiogram. Defer to cardiology with regards to anticoagulation. BP currently controlled as well. 04/01/2021. Echocardiogram reveals EF of 30 to 35% with mild concentric left ventricular hypertrophy, global hypokinesis of the left ventricle, right ventricle is hypokinetic, mild tricuspid regurgitation, IVC dilated and left atrium is mildly dilated. Cardiology plans for stress on Saturday and possible DILSHAD cardioversion on Saturday. Continue heparin drip for anticoagulation. Cardizem drip discontinued and patient initiated on metoprolol 50 mg p.o. twice daily. Rate currently is controlled. Therefore, patient will be downgraded to telemetry. Continue Diovan for hypertension. I discussed the case with cardiology 04/02/2021. Cardiology plans for stress on Saturday and possible DILSHAD cardioversion on Saturday. Continue heparin drip for anticoagulation. Cardizem drip discontinued and patient initiated on metoprolol 100 mg p.o. twice daily. Rate currently is controlled. Continue losartan for blood pressure control. History Interval history: No new issues overnight Hospitalist Physical - Constitutional Vitals: Temp Pulse Resp BP Pulse Ox 97.5 F L 110 H 18 133/96 89 04/02/21 08:36 04/02/21 09:04 04/02/21 08:36 04/02/21 09:04 04/02/21 08:36 General appearance: Present: no acute distress - EENT Eyes: Present: PERRL, EOM intact ENT: hearing intact, clear oral mucosa, dentition normal - Neck Neck: Present: supple, normal ROM - Respiratory Respiratory effort: normal Respiratory: bilateral: CTA - Cardiovascular Rhythm: regular Heart Sounds: Present: S1 & S2. Absent: gallop, rub - Extremities Extremities: no ischemia, No edema, Full ROM - Abdominal General gastrointestinal: soft, non-tender, non-distended, normal bowel sounds - Integumentary Integumentary: Present: clear, warm, dry - Neurologic Neurologic: CNII-XII intact, moves all extremities HEART Score - HEART Score EKG: Non-specific Age: 45-65 Risk factors: 1-2 risk factors Troponin: Troponin T < 0.010 ng/mL (0.00-0.029) 03/30/21 19:00 Troponin: < normal limit Results - Labs CBC & Chem 7: 04/02/21 05:24 04/02/21 05:24 Labs: Laboratory Last Values WBC 9.5 K/mm3 (4.5-11.0) 03/30/21 17:14 RBC 4.34 M/mm3 (3.65-5.03) 03/30/21 17:14 Hgb 14.3 gm/dl (11.8-15.2) 04/02/21 05:24 Hct 41.8 % (35.5-45.6) 04/02/21 05:24 MCV 91 fl (84-94) 03/30/21 17:14 MCH 31 pg (28-32) 03/30/21 17:14 MCHC 34 % (32-34) 03/30/21 17:14 RDW 15.2 % (13.2-15.2) 03/30/21 17:14 Plt Count 184 K/mm3 (140-440) 04/02/21 05:24 Lymph % (Auto) 24.3 % (13.4-35.0) 03/30/21 17:14 [place] % (Auto) 9.9 % (0.0-7.3) H 03/30/21 17:14 Eos % (Auto) 5.0 % (0.0-4.3) H 03/30/21 17:14 Baso % (Auto) 1.0 % (0.0-1.8) 03/30/21 17:14 Lymph # (Auto) 2.3 K/mm3 (1.2-5.4) 03/30/21 17:14 [place] # (Auto) 0.9 K/mm3 (0.0-0.8) H 03/30/21 17:14 Eos # (Auto) 0.5 K/mm3 (0.0-0.4) H 03/30/21 17:14 Baso # (Auto) 0.1 K/mm3 (0.0-0.1) 03/30/21 17:14 Seg Neutrophils % 59.8 % (40.0-70.0) 03/30/21 17:14 Seg Neutrophils # 5.7 K/mm3 (1.8-7.7) 03/30/21 17:14 PT 15.5 Sec. (12.2-14.9) H 03/31/21 19:26 INR 1.18 (0.87-1.13) H 03/31/21 19:26 APTT 83.0 Sec. (24.2-36.6) H* 03/31/21 19:26 D-Dimer 216.93 ng/mlDDU (0-234) 04/01/21 13:56 Heparin Anti-Xa Level 0.18 U.I./ml (0.3-0.7) L 04/01/21 15:20 Sodium 141 mmol/L (137-145) 04/02/21 05:24 Potassium 3.9 mmol/L (3.6-5.0) 04/02/21 05:24 Chloride 106.8 mmol/L (98-107) 04/02/21 05:24 Carbon Dioxide 24 mmol/L (22-30) 04/02/21 05:24 Anion Gap 14 mmol/L 04/02/21 05:24 BUN 13 mg/dL (9-20) 04/02/21 05:24 Creatinine 0.9 mg/dL (0.8-1.3) 04/02/21 05:24 Estimated GFR > 60 ml/min 04/02/21 05:24 BUN/Creatinine Ratio 14 % 04/02/21 05:24 Glucose 91 mg/dL (75-100) 04/02/21 05:24 Calcium 8.9 mg/dL (8.4-10.2) 04/02/21 05:24 Magnesium 1.70 mg/dL (1.7-2.3) 03/30/21 19:26 Ferritin 189.6 ng/mL (30.0-300.0) 04/01/21 13:56 Lactate Dehydrogenase 264 units/L (91-180) H 04/01/21 13:56 Troponin T < 0.010 ng/mL (0.00-0.029) 03/30/21 19:00 C-Reactive Protein 0.50 mg/dL (0.00-1.30) 04/01/21 13:56 NT-Pro-B Natriuret Pep 847.6 pg/mL (0-900) 03/30/21 17:14 Procalcitonin 0.09 ng/mL (<0.15) 04/01/21 13:56 TSH 1.680 mlU/mL (0.270-4.200) 03/30/21 19:26 Free T4 1.23 ng/dL (0.76-1.46) 03/30/21 19:26 Wharton/IV: Voiding Method Urinal Active Medications - Current Medications Current Medications: Generic Name Dose Route Start Last Admin Trade Name Freq PRN Reason Stop Dose Admin Acetaminophen 650 mg 03/30/21 19:17 Acetaminophen 325 Mg Tab PO Q4H PRN Pain MILD(1-3)/Fever >100.5/RIVAS Famotidine 10 mg 03/30/21 22:00 04/02/21 09:04 Famotidine 10 Mg Tab PO 10 mg BID HINA Administration Furosemide 40 mg 04/01/21 11:00 04/02/21 09:04 Furosemide 40 Mg/4 Ml Inj IV 40 mg QDAY HINA Administration Hydromorphone HCl 0.5 mg 03/30/21 19:17 Hydromorphone 1 Mg/1 Ml Inj IV Q23H PRN Pain , Severe (7-10) Heparin Sodium/Sodium Chloride 25,000 unit in 500 mls @ 30 mls/hr 03/31/21 15:00 04/01/21 13:11 Heparin/ 0.45% Nacl-25,000 Unit/500 Ml IV 1,300 units/hr TITR HINA 26 mls/hr Administration Protocol 1,500 UNITS/HR Losartan Potassium 50 mg 04/01/21 10:00 04/02/21 09:04 Losartan 50 Mg Tab PO 50 mg QDAY HINA Administration Metoprolol Tartrate 100 mg 04/01/21 10:00 04/02/21 09:04 Metoprolol Tartrate 100 Mg Tab PO 100 mg BID HINA Administration Ondansetron HCl 4 mg 03/30/21 19:17 Ondansetron 4 Mg/2 Ml Inj IV Q8H PRN Nausea And Vomiting Oxycodone/Acetaminophen 1 tab 03/30/21 19:17 Oxycodone /Acetaminophen 5-325mg Tab PO Q16H PRN Pain, Moderate (4-6) Sodium Chloride 10 ml 03/30/21 22:00 04/02/21 09:08 Sodium Chloride 0.9% 10 Ml Flush Syringe IV 10 ml BID HINA Administration Sodium Chloride 10 ml 03/30/21 19:17 Sodium Chloride 0.9% 10 Ml Flush Syringe IV PRN PRN LINE FLUSH
--- NOTE | 2021-04-02 11:31 | Progress Note ---
Assessment and Plan 55-year-old male with obesity has new onset atrial flutter increase metoprolol 100 mg twice a day patient is found to have cardiomyopathy continue losartan. Shortness of breath has improved after Lasix continue oral Lasix will schedule for cardioversion with DILSHAD given the fact that atrial flutter still not well controlled discussed the risk and benefits with the patient spoke with anesthesia tentatively scheduled for 11 AM tomorrow - Patient Problems (1) Systolic heart failure Current Visit: Yes Status: Acute Qualifiers: Heart failure chronicity: acute Qualified Code(s): I50.21 - Acute systolic (congestive) heart failure (2) Acute respiratory failure with hypoxia Current Visit: Yes Status: Acute (3) Atrial flutter with rapid ventricular response Current Visit: Yes Status: Acute (4) Hypertensive emergency Current Visit: Yes Status: Acute (5) Obesity (BMI 30-39.9) Current Visit: No Status: Acute Subjective Date of service: 04/02/21 Principal diagnosis: chf and aflutter Interval history: sob has improved Objective Vital Signs Temp Pulse Resp BP BP Pulse Ox 04/02/21 09:04 110 H 133/96 04/02/21 08:36 97.5 F L 129 H 18 133/96 89 04/02/21 03:37 98.4 F 92 H 18 137/95 97 04/02/21 03:25 18 100 04/02/21 00:58 98.6 F 96 H 18 119/89 93 04/01/21 19:59 98.6 F 68 18 141/68 99 04/01/21 16:06 98.7 F 106 H 18 116/90 97 04/01/21 14:10 98 - Physical Examination General: No Apparent Distress HEENT: Positive: PERRL Neck: Positive: trachea midline Cardiac: Positive: Irregularly Regular Lungs: Positive: clear to auscultation Neuro: Positive: Grossly Intact Abdomen: Positive: Soft, Active Bowel Sounds Skin: Negative: Rash, Suspicious Lesions, Ulceration Extremities: Present: upper extr. pulses, lower extr. pulses. Absent: edema - Labs and Meds Cardiac Enzymes 04/01/21 Range/Units 13:56 Lactate Dehydrogenase 264 H (91-180) units/L CBC 04/02/21 Range/Units 05:24 Hgb 14.3 (11.8-15.2) gm/dl Hct 41.8 (35.5-45.6) % Plt Count 184 (140-440) K/mm3 Comprehensive Metabolic Panel 04/01/21 04/02/21 Range/Units 13:56 05:24 Sodium 141 (137-145) mmol/L Potassium 3.9 (3.6-5.0) mmol/L Chloride 106.8 (98-107) mmol/L Carbon Dioxide 24 (22-30) mmol/L BUN 13 (9-20) mg/dL Creatinine 0.9 (0.8-1.3) mg/dL Glucose 103 H 91 (75-100) mg/dL Calcium 8.9 (8.4-10.2) mg/dL - Imaging and Cardiology EKG: report reviewed, image reviewed Echo: report reviewed - Telemetry EKG Rhythm: Atrial Flutter (at 90-100)
[2021-04-02] MEDS: HEPARIN/ 0.45% NACL DRIP 25,000 UNIT/500 ML BAG IV SCH (18:50)
--- NOTE | 2021-04-03 08:53 | Progress Note ---
Assessment and Plan Assessment and plan: New onset atrial fibrillation with RVR. Accelerated hypertension Obesity. OHS/CHAPIN GERD Medical noncompliance. 03/31/2021. Continue Cardizem drip for now. Await cardiology consultation. Patient will need to be transition to p.o. medications. Rate currently controlled. Follow-up echocardiogram. Defer to cardiology with regards to anticoagulation. BP currently controlled as well. 04/01/2021. Echocardiogram reveals EF of 30 to 35% with mild concentric left ventricular hypertrophy, global hypokinesis of the left ventricle, right ventricle is hypokinetic, mild tricuspid regurgitation, IVC dilated and left atrium is mildly dilated. Cardiology plans for stress on Saturday and possible DILSHAD cardioversion on Saturday. Continue heparin drip for anticoagulation. Cardizem drip discontinued and patient initiated on metoprolol 50 mg p.o. twice daily. Rate currently is controlled. Therefore, patient will be downgraded to telemetry. Continue Diovan for hypertension. I discussed the case with cardiology 04/02/2021. Cardiology plans for stress on Saturday and possible DILSHAD cardioversion on Saturday. Continue heparin drip for anticoagulation. Cardizem drip discontinued and patient initiated on metoprolol 100 mg p.o. twice daily. Rate currently is controlled. Continue losartan for blood pressure control. 04/03/2021. DILSHAD cardioversion and stress test per cardiology. Continue heparin d rip for anticoagulation. Cardizem drip discontinued and patient initiated on metoprolol 100 mg p.o. twice daily with controlled rate. History Interval history: No new issues overnight Hospitalist Physical - Constitutional Vitals: Temp Pulse Resp BP Pulse Ox 98.9 F 94 H 18 133/89 98 04/03/21 07:44 04/03/21 07:44 04/03/21 07:44 04/03/21 07:44 04/03/21 07:44 General appearance: Present: no acute distress - EENT Eyes: Present: PERRL, EOM intact ENT: hearing intact, clear oral mucosa, dentition normal - Neck Neck: Present: supple, normal ROM - Respiratory Respiratory effort: normal Respiratory: bilateral: CTA - Cardiovascular Rhythm: regular Heart Sounds: Present: S1 & S2. Absent: gallop, rub - Extremities Extremities: no ischemia, No edema, Full ROM - Abdominal General gastrointestinal: soft, non-tender, non-distended, normal bowel sounds - Integumentary Integumentary: Present: clear, warm, dry - Neurologic Neurologic: CNII-XII intact, moves all extremities HEART Score - HEART Score EKG: Non-specific Age: 45-65 Risk factors: 1-2 risk factors Troponin: Troponin T < 0.010 ng/mL (0.00-0.029) 03/30/21 19:00 Troponin: < normal limit Results - Labs CBC & Chem 7: 04/02/21 05:24 04/02/21 05:24 Labs: Laboratory Last Values WBC 9.5 K/mm3 (4.5-11.0) 03/30/21 17:14 RBC 4.34 M/mm3 (3.65-5.03) 03/30/21 17:14 Hgb 14.3 gm/dl (11.8-15.2) 04/02/21 05:24 Hct 41.8 % (35.5-45.6) 04/02/21 05:24 MCV 91 fl (84-94) 03/30/21 17:14 MCH 31 pg (28-32) 03/30/21 17:14 MCHC 34 % (32-34) 03/30/21 17:14 RDW 15.2 % (13.2-15.2) 03/30/21 17:14 Plt Count 184 K/mm3 (140-440) 04/02/21 05:24 Lymph % (Auto) 24.3 % (13.4-35.0) 03/30/21 17:14 [place] % (Auto) 9.9 % (0.0-7.3) H 03/30/21 17:14 Eos % (Auto) 5.0 % (0.0-4.3) H 03/30/21 17:14 Baso % (Auto) 1.0 % (0.0-1.8) 03/30/21 17:14 Lymph # (Auto) 2.3 K/mm3 (1.2-5.4) 03/30/21 17:14 [place] # (Auto) 0.9 K/mm3 (0.0-0.8) H 03/30/21 17:14 Eos # (Auto) 0.5 K/mm3 (0.0-0.4) H 03/30/21 17:14 Baso # (Auto) 0.1 K/mm3 (0.0-0.1) 03/30/21 17:14 Seg Neutrophils % 59.8 % (40.0-70.0) 03/30/21 17:14 Seg Neutrophils # 5.7 K/mm3 (1.8-7.7) 03/30/21 17:14 PT 15.5 Sec. (12.2-14.9) H 03/31/21 19:26 INR 1.18 (0.87-1.13) H 03/31/21 19:26 APTT 83.0 Sec. (24.2-36.6) H* 03/31/21 19:26 D-Dimer 216.93 ng/mlDDU (0-234) 04/01/21 13:56 Heparin Anti-Xa Level 0.16 U.I./ml (0.3-0.7) L 04/02/21 15:37 Sodium 141 mmol/L (137-145) 04/02/21 05:24 Potassium 3.9 mmol/L (3.6-5.0) 04/02/21 05:24 Chloride 106.8 mmol/L (98-107) 04/02/21 05:24 Carbon Dioxide 24 mmol/L (22-30) 04/02/21 05:24 Anion Gap 14 mmol/L 04/02/21 05:24 BUN 13 mg/dL (9-20) 04/02/21 05:24 Creatinine 0.9 mg/dL (0.8-1.3) 04/02/21 05:24 Estimated GFR > 60 ml/min 04/02/21 05:24 BUN/Creatinine Ratio 14 % 04/02/21 05:24 Glucose 91 mg/dL (75-100) 04/02/21 05:24 Calcium 8.9 mg/dL (8.4-10.2) 04/02/21 05:24 Magnesium 1.70 mg/dL (1.7-2.3) 03/30/21 19:26 Ferritin 189.6 ng/mL (30.0-300.0) 04/01/21 13:56 Lactate Dehydrogenase 264 units/L (91-180) H 04/01/21 13:56 Troponin T < 0.010 ng/mL (0.00-0.029) 03/30/21 19:00 C-Reactive Protein 0.50 mg/dL (0.00-1.30) 04/01/21 13:56 NT-Pro-B Natriuret Pep 847.6 pg/mL (0-900) 03/30/21 17:14 Procalcitonin 0.09 ng/mL (<0.15) 04/01/21 13:56 TSH 1.680 mlU/mL (0.270-4.200) 03/30/21 19:26 Free T4 1.23 ng/dL (0.76-1.46) 03/30/21 19:26 Wharton/IV: Voiding Method Toilet Active Medications - Current Medications Current Medications: Generic Name Dose Route Start Last Admin Trade Name Freq PRN Reason Stop Dose Admin Acetaminophen 650 mg 03/30/21 19:17 Acetaminophen 325 Mg Tab PO Q4H PRN Pain MILD(1-3)/Fever >100.5/RIVAS Famotidine 10 mg 03/30/21 22:00 04/02/21 21:07 Famotidine 10 Mg Tab PO 10 mg BID HINA Administration Furosemide 40 mg 04/03/21 10:00 Furosemide 40 Mg Tab PO QDAY HINA Hydromorphone HCl 0.5 mg 03/30/21 19:17 Hydromorphone 1 Mg/1 Ml Inj IV Q23H PRN Pain , Severe (7-10) Heparin Sodium/Sodium Chloride 25,000 unit in 500 mls @ 30 mls/hr 03/31/21 15:00 04/02/21 18:50 Heparin/ 0.45% Nacl-25,000 Unit/500 Ml IV 1,300 units/hr TITR HINA 26 mls/hr Administration Protocol 1,500 UNITS/HR Losartan Potassium 50 mg 04/01/21 10:00 04/02/21 09:04 Losartan 50 Mg Tab PO 50 mg QDAY HINA Administration Metoprolol Tartrate 100 mg 04/01/21 10:00 04/02/21 21:07 Metoprolol Tartrate 100 Mg Tab PO 100 mg BID HINA Administration Ondansetron HCl 4 mg 03/30/21 19:17 Ondansetron 4 Mg/2 Ml Inj IV Q8H PRN Nausea And Vomiting Oxycodone/Acetaminophen 1 tab 03/30/21 19:17 Oxycodone /Acetaminophen 5-325mg Tab PO Q16H PRN Pain, Moderate (4-6) Sodium Chloride 10 ml 03/30/21 22:00 04/02/21 21:07 Sodium Chloride 0.9% 10 Ml Flush Syringe IV 10 ml BID HINA Administration Sodium Chloride 10 ml 03/30/21 19:17 Sodium Chloride 0.9% 10 Ml Flush Syringe IV PRN PRN LINE FLUSH
[2021-04-03] MEDS ORDERED: BENZOCAINE 20% TOP SPRAY 0.5 ML UNIT DOSE MM NR (10:00)
[2021-04-03] MEDS ORDERED: SODIUM CHLORIDE 0.9% 1000 ML 1,000 ML ONE (10:21)
[2021-04-03] MEDS ORDERED: LIDOCAINE MPF (2%) 20 MG/1 ML VIAL 5 ML ONE (12:54)
[2021-04-03] MEDS ORDERED: ePHEDrine SULFATE 50 MG/1 ML INJ ONE (12:54)
[2021-04-03] MEDS ORDERED: propofoL 200 MG/20 ML VIAL IV ONE ×3 (12:54)
--- NOTE | 2021-04-03 14:39 | Electrocardiograph Report ---
[facility] Test Date: 2021-03-30 Test Time: 15:45:47 Pat Name: MIHAELA JIMÉNEZ Department: Room: A465 Gender: M Telephone Sales Representative: DEWEY : 1965 Requested By: HUY DUKE Order Number: [id number] Reading MD: Epi Yang Measurements Intervals [place] Rate: 139 P: [place]: QRS: -60 QRSD: 116 T: -63 QT: 349 QTc: 532 Interpretive Statements Atrial flutter with predominant 2:1 AV block RBBB and LAFB Prolonged QT interval Compared to ECG 01/08/2021 16:19:41 No significant change Electronically Signed On 04-03-2021 14:39:23 EDT by Epi Yang
--- NOTE | 2021-04-03 14:41 | Electrocardiograph Report ---
[facility] Test Date: 2021-03-30 Test Time: 18:02:22 Pat Name: MIHAELA JIMÉNEZ Department: Room: A465 Gender: M Risk Control Specialist: EMIR : 1965 Requested By: HUY DUKE Order Number: [id number] Reading MD: Epi Yang Measurements Intervals [place] Rate: 84 P: [place]: QRS: 44 QRSD: 101 T: 73 QT: 439 QTc: 510 Interpretive Statements Atrial flutter with variable AV conduction Prolonged QT interval Compared to ECG 03/30/2021 15:45:47 AV rate control is more optimal on current ECG Electronically Signed On 04-03-2021 14:40:50 EDT by Epi Yang
--- NOTE | 2021-04-03 14:42 | Electrocardiograph Report ---
[facility] Test Date: 2021-03-30 Test Time: 21:36:17 Pat Name: MIHAELA JIMÉNEZ Department: Room: A465 Gender: M Computer Systems Integrator: : 1965 Requested By: CURTIS GUTIERREZ Order Number: [id number] Reading MD: Epi Yang Measurements Intervals [place] Rate: 137 P: -38 ND: 192 QRS: -80 QRSD: 114 T: 6 QT: 348 QTc: 525 Interpretive Statements Atrial flutter with 2-1 AV conduction Compared to ECG 01/08/2021 16:19:41 Ventricular rate has increased on the current ECG Electronically Signed On 04-03-2021 14:42:16 EDT by Epi Yang
--- NOTE | 2021-04-03 14:43 | Electrocardiograph Report ---
[facility] Test Date: 2021-03-30 Test Time: 22:05:22 Pat Name: MIHAELA JIMÉNEZ Department: Room: A465 Gender: M Dye Reel Operator: RIGOBERTO : 1965 Requested By: HUY DUKE Order Number: [id number] Reading MD: Epi Yang Measurements Intervals [place] Rate: 78 P: [place]: QRS: 45 QRSD: 111 T: 89 QT: 472 QTc: 543 Interpretive Statements Atrial flutter Well-controlled ventricular rate Compared to ECG 03/30/2021 21:36:17 Ventricular rate control is more optimal on current ECG Electronically Signed On 04-03-2021 14:42:45 EDT by Epi Yang
--- NOTE | 2021-04-03 15:01 | Anesthesia Consultation ---
Anesthesia Consult and Med Hx Date of service: 04/03/21 - Airway Anesthetic Teeth Evaluation: Good ROM Head & Neck: Adequate Mental/Hyoid Distance: Adequate Mallampati Class: Class III Intubation Access Assessment: Possibly Difficult - Pre-Operative Health Status ASA Pre-Surgery Classification: ASA3 Proposed Anesthetic Plan: MAC - Pulmonary Hx Respiratory Symptoms: No - Cardiovascular System Hx Hypertension: Yes Hx Heart Attack/AMI: No (cardiomyopathy EF 30%) Hx Cardia Arrhythmia: Yes (a-flutter w/ RVR) - Central Nervous System CVA: No - Endocrine Hx Renal Disease: No Hx Liver Disease: No Hx Insulin Dependent Diabetes: No Hx Non-Insulin Dependent Diabetes: No Hx Thyroid Disease: No - Other Systems Hx Obesity: Yes (BMI 34)
--- NOTE | 2021-04-03 15:01 | Anesthesia Day of Surgery ---
Anesthesia Day of Surgery - Day of Surgery Patient Examined: Yes Patient H&P Reviewed: Yes Patient is NPO: Yes Beta Blockers: Yes
--- NOTE | 2021-04-03 15:01 | Post Anesthesia Evaluation ---
- Post Anesthesia Evaluation Patient Participated: Yes Airway Patent: Yes Stable Respiratory Function: Yes Nausea/Vomiting: No Temp > 96.8F: Yes Pain Manageable: Yes Adequeate Hydration: Yes Anesthesia Complications: No
--- NOTE | 2021-04-03 15:12 | Progress Note ---
Assessment and Plan HFrEF ( compensated) Dilated cardiomyopathy HTN Atrial flutter w/RVR * EKG shows aflutter 77 with no acute ischemic changes. Troponins negative x2. AMI ruled * Patient is euvolemic on exam, no SOB, orthopnea, or BLE edema. * Echo 03/30/2021-EF 30 to 35% mild concentric left ventricular hypertrophy, global hypokinesis of left ventricle right ventricle is hypokinetic, mild tricuspid regurg to, the IVC is dilated, left atrium is mildly dilated * Currently on: metoprolol 100mg PO BID, losasrtan 50mg QD, and lasix 40mg PO QD Plan: Patient cardioverted to normal sinus rhythm. Stop Heparin gtt and convert to Eliquis for anticoagulation. Plan for possible discharge tomorrow Patient has follow up appointment with Dr. Pradhan, [facility], on 04/24/2021 at 9am at our [place] location. Patient seen in conjunction with Dr. Peñaloza who agrees with this plan of care. Will continue to follow - Patient Problems (1) Acute chest pain Current Visit: Yes Status: Acute (2) Atrial flutter with rapid ventricular response Current Visit: Yes Status: Acute (3) Hypertensive emergency Current Visit: Yes Status: Acute (4) Atypical chest pain Current Visit: No Status: Acute (5) GERD (gastroesophageal reflux disease) Current Visit: No Status: Acute (6) Hypertension Current Visit: No Status: Acute (7) Obesity (BMI 30-39.9) Current Visit: No Status: Acute Subjective Date of service: 04/03/21 Principal diagnosis: chf and aflutter Interval history: Patient for DILSHAD and cardioversion today PAtient aflutter 90s-100s this am on monitor Objective Vital Signs Temp Pulse Pulse Pulse Resp Resp BP 04/03/21 13:00 94 H 18 04/03/21 11:00 85 04/03/21 07:44 98.9 F 94 H 18 133/89 04/03/21 07:36 100 H 18 04/03/21 04:00 102 H 04/03/21 03:51 97.8 F 76 16 133/97 04/02/21 23:54 98.2 F 110 H 17 123/73 04/02/21 20:58 106 H 18 04/02/21 19:36 98.2 F 92 H 18 140/84 04/02/21 16:55 98.2 F 94 H 18 133/94 BP Pulse Ox Pulse Ox 04/03/21 13:00 133/89 100 04/03/21 11:00 04/03/21 07:44 98 04/03/21 07:36 100 04/03/21 04:00 04/03/21 03:51 96 04/02/21 23:54 97 04/02/21 20:58 100 04/02/21 19:36 95 04/02/21 16:55 100 - Physical Examination General: No Apparent Distress HEENT: Positive: PERRL Neck: Positive: trachea midline Cardiac: Positive: Irregularly Regular Lungs: Positive: Normal Breath Sounds Neuro: Positive: Grossly Intact Abdomen: Positive: Soft, Active Bowel Sounds Skin: Negative: Rash, Suspicious Lesions, Ulceration Extremities: Present: upper extr. pulses, lower extr. pulses. Absent: edema - Imaging and Cardiology EKG: report reviewed, image reviewed Echo: report reviewed DILSHAD: report reviewed - Telemetry EKG Rhythm: Atrial Flutter - EKG Supraventricular dysrhythmia: atrial flutter
[2021-04-03 16:08] LABS: Hematocrit 44.5 % (35.5-45.6); Mean Corpuscular HGB Conc 34 % (32-34); Mean Corpuscular Volume 93 fl (84-94); Platelet Count 196 K/mm3 (140-440); Red Blood Count 4.78 M/mm3 (3.65-5.03); Red Cell Distribution Width 15.7 % (13.2-15.2)
[2021-04-03 16:20] LABS: INR 0.99 (0.87-1.13)
[2021-04-03] MEDS: FUROSEMIDE 40 MG TAB PO SCH (16:24)
[2021-04-03] MEDS: FAMOTIDINE 10 MG TAB PO SCH ×2 (16:24→21:24)
[2021-04-03] MEDS: METOPROLOL TARTRATE 100 MG TAB PO SCH ×2 (16:24→21:24)
[2021-04-03] MEDS: LOSARTAN 50 MG TAB PO SCH (16:24)
[2021-04-03] MEDS: APIXABAN 5 MG TAB PO SCH (21:25)
[2021-04-04 06:14] LABS: Hematocrit 43.1 % (35.5-45.6); Hemoglobin 14.5 gm/dl (11.8-15.2)
--- NOTE | 2021-04-04 11:01 | Discharge Summary ---
Providers - Providers Date of Admission: 03/31/21 14:40 Date of discharge: 04/04/21 Attending physician: FREDRICK VYAS 03/30/21 18:51 Consult to Physician [CONS] Stat Comment: Consulting Provider: INOCENCIO STARR Physician Instructions: Reason For Exam: chest pain, Atrial flutter 04/02/21 11:24 Consult to Anesthesiology [CONS] Routine Consulting Provider: ARASELI MILLS Reason For Exam: cardioverson Primary care physician: ON CALL Hospitalization Condition: Stable Disposition: 01 HOME / SELF CARE / HOMELESS - Discharge Diagnoses (1) Atrial flutter with rapid ventricular response Status: Acute (2) Hypertensive emergency Status: Acute (3) Hypertension Status: Acute (4) Noncompliance Status: Acute (5) Obesity (BMI 30-39.9) Status: Acute Core Measure Documentation - Palliative Care Palliative Care/ Comfort Measures: Not Applicable - Core Measures Any of the following diagnoses?: heart failure - Heart Failure Discharge Requirements LUANNE/ARB for LVSD if EF <40%: Not Applicable Beta cathy at discharge: Yes Exam - Constitutional Vitals: Temp Pulse Resp BP Pulse Ox 98.9 F 55 L 11 L 122/88 97 04/04/21 03:26 04/04/21 08:58 04/04/21 08:58 04/04/21 08:58 04/04/21 08:58 Plan Activity: advance as tolerated Diet: low fat, low cholesterol, low salt Plan of Treatment: 1.Follow up with PCP in 1 week. 2.Follow up with Dr. Pradhan, Cardiology on 04/24/21 Follow up with: PRIMARY CARE, [Primary Care Provider] - 3-5 Days Prescriptions: Losartan [Cozaar] 50 mg PO QDAY #30 tablet Apixaban [Eliquis] 5 mg PO Q12HR #60 tablet Furosemide [Lasix TAB] 40 mg PO QDAY #30 tablet
[2021-04-04 11:32] VITALS: BP 115/77
[2021-04-04] MEDS: APIXABAN 5 MG TAB PO SCH (11:41)
[2021-04-04] MEDS: FAMOTIDINE 10 MG TAB PO SCH (11:41)
[2021-04-04] MEDS: FUROSEMIDE 40 MG TAB PO SCH (11:42)
[2021-04-04] MEDS: METOPROLOL TARTRATE 100 MG TAB PO SCH (11:42)
[2021-04-04] MEDS: LOSARTAN 50 MG TAB PO SCH (11:43)
[2021-04-04] MEDS ORDERED: METOPROLOL TARTRATE 100 MG TAB PO SCH (12:09)
--- NOTE | 2021-04-04 13:51 | Progress Note ---
Assessment and Plan HFrEF ( compensated) Dilated cardiomyopathy HTN Atrial flutter w/RVR * EKG shows aflutter 77 with no acute ischemic changes. Troponins negative x2. AMI ruled * Patient is euvolemic on exam, no SOB, orthopnea, or BLE edema. * Echo 03/30/2021-EF 30 to 35% mild concentric left ventricular hypertrophy, global hypokinesis of left ventricle right ventricle is hypokinetic, mild tricuspid regurg to, the IVC is dilated, left atrium is mildly dilated * Currently on: metoprolol 100mg PO BID, losasrtan 50mg QD, and lasix 40mg PO QD Plan: Patient currently sinus with episodes of bradycardia on monitor. Decrease to metoprolol 50mg PO BID. Continue Eliquis for anticoagulation. Patient stable form cardiac perspective for discharge Patient has follow up appointment with Dr. Pradhan, [facility], on 04/24/2021 at 9am at our [place] location. Patient seen in conjunction with Dr. Wilder who agrees with this plan of care. Will sign off - Patient Problems (1) Acute chest pain Current Visit: Yes Status: Acute (2) Atrial flutter with rapid ventricular response Current Visit: Yes Status: Acute (3) Hypertensive emergency Current Visit: Yes Status: Acute (4) Atypical chest pain Current Visit: No Status: Acute (5) GERD (gastroesophageal reflux disease) Current Visit: No Status: Acute (6) Hypertension Current Visit: No Status: Acute (7) Obesity (BMI 30-39.9) Current Visit: No Status: Acute Subjective Date of service: 04/04/21 Principal diagnosis: chf and aflutter Interval history: Patient s/p cardiversion day 1. Patient has no cardiac complaints Patient sinus juany 55 on monitor Objective Vital Signs Temp Pulse Pulse Pulse Resp Resp BP 04/04/21 11:43 90 04/04/21 11:42 90 04/04/21 11:26 97.2 F L 16 115/77 04/04/21 08:58 55 L 11 L 122/88 04/04/21 03:26 98.9 F 69 18 97/56 04/04/21 03:00 100 H 18 04/03/21 23:15 99.0 F 69 18 92/61 04/03/21 19:17 98.0 F 68 18 101/63 04/03/21 16:24 81 125/98 04/03/21 13:58 66 18 BP Pulse Ox Pulse Ox Pulse Ox 04/04/21 11:43 04/04/21 11:42 04/04/21 11:26 04/04/21 08:58 97 04/04/21 03:26 97 04/04/21 03:00 100 04/03/21 23:15 97 04/03/21 19:17 98 04/03/21 16:24 04/03/21 13:58 120/85 100 100 - Physical Examination General: No Apparent Distress HEENT: Positive: PERRL Neck: Positive: trachea midline Cardiac: Positive: Regular Rhythm, Bradycardia Lungs: Positive: Normal Breath Sounds Neuro: Positive: Grossly Intact Abdomen: Positive: Soft, Active Bowel Sounds Skin: Negative: Rash, Suspicious Lesions, Ulceration Extremities: Present: upper extr. pulses, lower extr. pulses. Absent: edema - Labs and Meds Coagulation 04/03/21 Range/Units 14:46 PT 13.6 (12.2-14.9) Sec. INR 0.99 (0.87-1.13) APTT 51.0 H (24.2-36.6) Sec. CBC 04/03/21 04/04/21 Range/Units 14:46 05:02 WBC 9.8 (4.5-11.0) K/mm3 RBC 4.78 (3.65-5.03) M/mm3 Hgb 15.0 14.5 (11.8-15.2) gm/dl Hct 44.5 43.1 (35.5-45.6) % Plt Count 196 186 (140-440) K/mm3 Comprehensive Metabolic Panel 04/03/21 Range/Units 14:46 Creatinine 1.1 (0.8-1.3) mg/dL - Imaging and Cardiology EKG: report reviewed, image reviewed Echo: report reviewed - Telemetry EKG Rhythm: Sinus Rhythm - EKG Sinus rhythms and dysrhythmias: sinus rhythm
== END 2021-04-04 12:00 | disposition home or self-care (01) | DRG 291 ==
LOC: ED 15:34 → 4A 19:17 → CC1 03-31 00:40 → OBSVTOIN 03-31 14:40 → 4A 04-01 10:49
PROVIDERS: ADMIT Internal Medicine; ATTEND Internal Medicine
DX: I11.0 Hypertensive heart disease with heart failure (principal); J96.01 Acute respiratory failure with hypoxia; E66.2 Morbid (severe) obesity with alveolar hypoventilation; I16.1 Hypertensive emergency; I48.92 Unspecified atrial flutter; I50.21 Acute systolic (congestive) heart failure; I42.0 Dilated cardiomyopathy; I48.20 Chronic atrial fibrillation, unspecified; Z68.34 Body mass index [BMI] 34.0-34.9, adult; K21.9 Gastro-esophageal reflux disease without esophagitis; Z83.3 Family history of diabetes mellitus; Z82.49 Family history of ischemic heart disease and other diseases of the circulatory system; Z91.19 Patient's noncompliance with other medical treatment and regimen; Z88.8 Allergy status to other drugs, medicaments and biological substances
CPT/HCPCS: 36415; 71045; 80048; 82565; 82728; 82947; 83615; 83735; 83880; 84145; 84439; 84443; 84484; 85014; 85018; 85025; 85027; 85049; 85379; 85520; 85610; 85730; 86140; 93005; 93306; 93312; 93320; 93325; G0378; J1644; J1940; J2270; J2704; J7030

== ENCOUNTER 2021-09-02 09:35 | Inpatient (IN) | payer MEDICAID, OTHER ==
--- NOTE | 2021-09-02 09:51 | Emergency Department Report ---
ED General Adult HPI - General Stated complaint: INTERNAL BLEEDING Time Seen by Provider: 09/02/21 09:39 - History of Present Illness Initial comments: Patient presented by ambulance from half-way secondary to bleeding problems. He states that he woke up Saturday, 3 days ago, with a bloody right eye. He states it was only partially bloody at that time. It is progressed. He also noticed that he was spitting out blood from his mouth. He thought the spitting up blood was related to an infected tooth. He had noticed bleeding when he was brushing his teeth. Labs were done at half-way. Apparently he was taken off of his blood thinners. He is still having bleeding problems and the half-way called and had the patient transported today. Patient has not noticed any hematuria. He did state that he had had blood in his ejaculate prior to getting arrested. He was on blood thinners. He is taking blood thinners for atrial fibrillation. Patient states that he has been on multiple different blood thinners and he really does not know everything that was given to him. While in half-way, he states that he was on warfarin but he does not know the dose. He does not currently feel dizzy or lightheaded. - Related Data Home Medications Medication Instructions Recorded Confirmed Last Taken Acetaminophen [Tylenol] 1,000 mg PO BID 09/02/21 09/02/21 Unknown Apixaban [Eliquis] 5 mg PO BID 09/02/21 09/02/21 Unknown Hydralazine HCl 100 mg PO BID 09/02/21 09/02/21 Unknown Omeprazole 20 mg PO DAILY 09/02/21 09/02/21 Unknown Warfarin [Coumadin] 5 mg PO QHS 09/02/21 09/02/21 Unknown amLODIPine 5 mg PO DAILY 09/02/21 09/02/21 Unknown Previous Rx's Medication Instructions Recorded Last Taken Type Apixaban [Eliquis] 5 mg PO Q12HR #60 tablet 04/04/21 Unknown Rx Famotidine [Pepcid] 20 mg PO BID #60 tablet 04/04/21 Unknown Rx Furosemide [Lasix TAB] 40 mg PO QDAY #30 tablet 04/04/21 Unknown Rx Losartan [Cozaar] 50 mg PO QDAY #30 tablet 04/04/21 Unknown Rx Metoprolol [Lopressor TAB] 50 mg PO BID #60 tablet 04/04/21 Unknown Rx Allergies Allergy/AdvReac Type Severity Reaction Status Date / Time lisinopril Allergy Angioedema Verified 01/08/21 16:14 ED Review of Systems ROS: Stated complaint: INTERNAL BLEEDING Other details as noted in HPI Comment: All other systems reviewed and negative Constitutional: denies: fever Eyes: as per HPI. denies: vision change ENT: denies: epistaxis Respiratory: denies: cough Cardiovascular: denies: chest pain Endocrine: denies: unexplained weight loss Gastrointestinal: denies: hematemesis, melena Genitourinary: denies: hematuria Musculoskeletal: denies: back pain Skin: denies: rash Neurological: denies: headache Hematological/Lymphatic: easy bruising ED Past Medical Hx - Medications Home Medications: Home Medications Medication Instructions Recorded Confirmed Last Taken Type Apixaban [Eliquis] 5 mg PO Q12HR #60 tablet 04/04/21 Unknown Rx Famotidine [Pepcid] 20 mg PO BID #60 tablet 04/04/21 Unknown Rx Furosemide [Lasix TAB] 40 mg PO QDAY #30 tablet 04/04/21 Unknown Rx Losartan [Cozaar] 50 mg PO QDAY #30 tablet 04/04/21 Unknown Rx Metoprolol [Lopressor TAB] 50 mg PO BID #60 tablet 04/04/21 Unknown Rx Acetaminophen [Tylenol] 1,000 mg PO BID 09/02/21 09/02/21 Unknown History Apixaban [Eliquis] 5 mg PO BID 09/02/21 09/02/21 Unknown History Hydralazine HCl 100 mg PO BID 09/02/21 09/02/21 Unknown History Omeprazole 20 mg PO DAILY 09/02/21 09/02/21 Unknown History Warfarin [Coumadin] 5 mg PO QHS 09/02/21 09/02/21 Unknown History amLODIPine 5 mg PO DAILY 09/02/21 09/02/21 Unknown History ED Physical Exam - General Limitations: No Limitations, Other (Pulse ox noted and normal) General appearance: alert, in no apparent distress - Head Head exam: Present: atraumatic, normocephalic - Eye Eye exam: Present: PERRL, EOMI, other (Right subconjunctival hemorrhage). Absent: scleral icterus - ENT ENT exam: Present: normal orophraynx, normal external ear exam - Neck Neck exam: Present: normal inspection. Absent: meningismus - Respiratory Respiratory exam: Present: normal lung sounds bilaterally. Absent: respiratory distress - Cardiovascular Cardiovascular Exam: Present: regular rate, normal rhythm - GI/Abdominal GI/Abdominal exam: Present: soft. Absent: distended, tenderness - Extremities Exam Extremities exam: Present: normal capillary refill - Back Exam Back exam: Absent: CVA tenderness (R), CVA tenderness (L) - Neurological Exam Neurological exam: Present: alert, oriented X3, CN II-XII intact. Absent: motor sensory deficit - Psychiatric Psychiatric exam: Present: normal affect, normal mood - Skin Skin exam: Present: warm, dry ED Course Vital Signs 09/02/21 09/02/21 09/02/21 09:57 10:04 10:15 Pulse Rate 75 71 Respiratory 18 13 Rate Blood Pressure 180/100 192/99 O2 Sat by Pulse 99 99 97 Oximetry 09/02/21 09/02/21 09/02/21 10:26 10:31 10:45 Pulse Rate 70 66 Respiratory 18 18 22 Rate Blood Pressure 156/94 156/94 O2 Sat by Pulse 99 96 97 Oximetry 09/02/21 09/02/21 09/02/21 11:01 11:15 11:31 Pulse Rate 66 68 70 Respiratory 18 24 19 Rate Blood Pressure 174/92 174/92 182/99 O2 Sat by Pulse 97 98 99 Oximetry - Reevaluation(s) Reevaluation #1: 09/02/21 09:50 EMS was met upon arrival. Labs were ordered. Old records reviewed. Reevaluation #2: 09/02/21 11:47 Labs were noted. Patient was updated. He agrees to FFP. Case was discussed with the hospitalist. We will proceed with admission. ED Medical Decision Making - Lab Data Result diagrams: 09/02/21 10:07 09/02/21 10:07 - EKG Data -: EKG Interpreted by Me - EKG Data 09/02/21 10:32 1017-EKG shows normal sinus rhythm at 75. QRS is normal at 107. QT corrected is normal at 453. Patient has no ST elevation to suggest infarct. There is ST depression in leads II, 3, aVF, V4 through V6. This appears to be old. Patient has no ectopy. There is artifact noted. - Medical Decision Making Patient presents with bleeding related to anticoagulation. He has a subconjunctival hemorrhage as well as evidence of an upper GI bleed with coffee- ground emesis. INR is supratherapeutic. Patient will get vitamin K and FFP for reversal. He is not hypotensive or tachycardic. He is not anemic and will not require red cells at this point. He is amenable to admission. Critical Care Time: Yes (45 minutes exclusive of all procedures) Critical care attestation.: If time is entered above; I have spent that time in minutes in the direct care of this critically ill patient, excluding procedure time. ED Disposition Clinical Impression: Subconjunctival hemorrhage of right eye, Upper GI bleed Coumadin toxicity Qualifiers: Encounter type: initial encounter Injury intent: accidental or unintentional Qualified Code(s): T45.511A - Poisoning by anticoagulants, accidental (unintentional), initial encounter Disposition: 09 ADMITTED INPATIENT Is pt being admited?: Yes Condition: Stable
[2021-09-02] MEDS ORDERED: ONDANSETRON 4 MG/2 ML INJ IV ONE (10:17)
[2021-09-02] MEDS ORDERED: PANTOPRAZOLE 40 MG INJ IV ONE (10:17)
[2021-09-02 10:31] LABS: Hematocrit 42.5 % (35.5-45.6); Mean Corpuscular HGB Conc 35 % (32-34); Mean Corpuscular Volume 87 fl (84-94); Platelet Count 179 K/mm3 (140-440); Red Blood Count 4.89 M/mm3 (3.65-5.03); Red Cell Distribution Width 15.3 % (13.2-15.2)
[2021-09-02 10:54] LABS: INR 12.21 (0.87-1.13); Partial Thromboplastin Time 99.8 Sec. (24.2-36.6)
[2021-09-02 11:32] LABS: BUN/Creatinine Ratio 15; Blood Urea Nitrogen 12 mg/dL (9-20); Calcium 9.6 mg/dL (8.4-10.2); Hemolysis Index 0
[2021-09-02] MEDS ORDERED: SODIUM CHLORIDE 0.9% 500 ML 500 ML IV ONE (11:43)
[2021-09-02] MEDS ORDERED: PHYTONADIONE(ADULT ONLY) 10 MG in SODIUM CHLORIDE 0.9% 50 ML IV ONE (12:00)
[2021-09-02] MEDS: PANTOPRAZOLE 80 MG in SODIUM CHLORIDE 0.9% 100 ML IV SCH ×2 (13:10→23:51)
[2021-09-02] MEDS ORDERED: ONDANSETRON 4 MG/2 ML INJ IV PRN (14:39)
[2021-09-02] MEDS ORDERED: HYDROmorphone 1 MG/1 ML INJ IV PRN (14:39)
[2021-09-02] MEDS ORDERED: ACETAMINOPHEN 325 MG TAB PO PRN (14:39)
[2021-09-02] MEDS ORDERED: METOCLOPRAMIDE 10 MG/2 ML INJ IV PRN (14:39)
[2021-09-02] MEDS ORDERED: D5W/0.9% NACL 1,000 ML IV SCH (15:00)
[2021-09-02] MEDS: MORPHINE 2 MG/1 ML INJ IV PRN ×2 (15:07→20:11)
[2021-09-02] MEDS ORDERED: SODIUM CHLORIDE 0.9% 500 ML 500 ML ONE (16:57)
[2021-09-02] MEDS ORDERED: cloNIDine TTS 0.2 MG/24 HR PATCH TD SCH ×3 (21:00→21:30)
[2021-09-03] MEDS ORDERED: SODIUM CHLORIDE 0.9% 500 ML 500 ML IV ONE (00:45)
[2021-09-03 01:26] LABS: Hematocrit 45.2 % (35.5-45.6); Hemoglobin 15.1 gm/dl (11.8-15.2)
[2021-09-03] MEDS ORDERED: PHYTONADIONE 10 MG/1 ML (ADULT ONLY)*INJECTION SUB-Q ONE (01:46)
--- NOTE | 2021-09-03 07:15 | History and Physical Report ---
History of Present Illness Date of examination: 09/02/21 Date of admission: 09/02/21 14:39 Chief complaint: Coffee-ground emesis for last 3 days History of present illness: 56-year-old male brought in from senior living for coffee-ground emesis and bloody right eye. Patient states he has been having coffee-ground emesis and black stools for the last 3 days. Patient is on Coumadin for atrial fibrillation. His INR is not being monitored. Patient has a history of hypertension. Patient feels lightheaded. Patient also with spitting up blood bleeding and whenever he bru shes teeth his gums are bleeding. Patient is being on multiple blood thinners and patient is not clear about the history. Patient was apparently on Eliquis followed by Coumadin. No recent pro time was done. Patient is slightly lightheaded. No syncope. No chest pain. No shortness of breath. past medical history -- atrial fibrillation, ---CHF ---hypertension, --- GERD past surgical history not available social history smokes family history HTN Review of Systems ROS: Stated complaint: INTERNAL BLEEDING Other details as noted in HPI Comment: All other systems reviewed and negative Constitutional: denies: fever Eyes: as per HPI. denies: vision change ENT: denies: epistaxis Respiratory: denies: cough Cardiovascular: denies: chest pain Endocrine: denies: unexplained weight loss Gastrointestinal: Hematemesis and melena Genitourinary: denies: hematuria Musculoskeletal: denies: back pain Skin: denies: rash Neurological: denies: headache Hematological/Lymphatic: easy bruising Medications and Allergies Allergies Allergy/AdvReac Type Severity Reaction Status Date / Time lisinopril Allergy Angioedema Verified 01/08/21 16:14 Home Medications Medication Instructions Recorded Confirmed Last Taken Type Apixaban [Eliquis] 5 mg PO Q12HR #60 tablet 04/04/21 09/03/21 08/03/21 21:00 Rx Famotidine [Pepcid] 20 mg PO BID #60 tablet 04/04/21 Unknown Rx Furosemide [Lasix TAB] 40 mg PO QDAY #30 tablet 04/04/21 09/03/21 08/03/21 09:00 Rx Losartan [Cozaar] 50 mg PO QDAY #30 tablet 04/04/21 Unknown Rx Metoprolol [Lopressor TAB] 50 mg PO BID #60 tablet 04/04/21 Unknown Rx Acetaminophen [Tylenol] 1,000 mg PO BID 09/02/21 09/02/21 Unknown History Apixaban [Eliquis] 5 mg PO BID 09/02/21 09/02/21 08/03/21 21:00 History Hydralazine HCl 100 mg PO BID 09/02/21 09/02/21 Unknown History Omeprazole 20 mg PO DAILY 09/02/21 09/02/21 Unknown History Omeprazole 40 mg PO QDAY 09/02/21 09/03/21 08/03/21 09:00 History Warfarin [Coumadin] 5 mg PO QHS 09/02/21 09/02/21 Unknown History amLODIPine 5 mg PO DAILY 09/02/21 09/02/21 Unknown History Spironolactone [Aldactone] 25 mg PO QDAY 09/03/21 09/03/21 08/03/21 09:00 History carvediloL [Coreg] 25 mg PO BID 09/03/21 09/03/21 08/03/21 21:00 History Active Meds: Active Medications Acetaminophen (Acetaminophen 325 Mg Tab) 650 mg PO Q4H PRN PRN Reason: Pain MILD(1-3)/Fever >100.5/RIVAS Clonidine HCl (Clonidine Tts 0.2 Mg/24 Hr Patch) 0.2 mg TD Sa [facility] Last Admin: 09/02/21 22:13 Dose: 0.2 mg Hydromorphone HCl (Hydromorphone 1 Mg/1 Ml Inj) 0.5 mg IV Q3H PRN PRN Reason: Pain , Severe (7-10) Pantoprazole Sodium 80 mg/ (Sodium Chloride) 100 mls @ 10 mls/hr IV DIRECT [facility] Last Admin: 09/02/21 23:51 Dose: 8 mg/hr, 10 mls/hr Dextrose/Sodium Chloride (D5ns) 1,000 mls @ 75 mls/hr IV DIRECT [facility] Last Admin: 09/02/21 22:45 Dose: 75 mls/hr Metoclopramide HCl (Metoclopramide 10 Mg/2 Ml Inj) 10 mg IV Q6H PRN PRN Reason: Nausea And Vomiting Morphine Sulfate (Morphine 2 Mg/1 Ml Inj) 2 mg IV Q4H PRN PRN Reason: Pain, Moderate (4-6) Last Admin: 09/02/21 20:11 Dose: 2 mg Ondansetron HCl (Ondansetron 4 Mg/2 Ml Inj) 4 mg IV Q3H PRN PRN Reason: Nausea And Vomiting Last Admin: 09/02/21 15:07 Dose: 4 mg Sodium Chloride (Sodium Chloride 0.9% 10 Ml Flush Syringe) 10 ml IV BID [facility]INA Last Admin: 09/02/21 23:11 Dose: 10 ml Sodium Chloride (Sodium Chloride 0.9% 10 Ml Flush Syringe) 10 ml IV PRN PRN PRN Reason: LINE FLUSH Exam - Constitutional Vitals: Temp Pulse Resp BP Pulse Ox 98 F 64 18 120/69 98 09/03/21 03:26 09/03/21 03:41 09/03/21 03:41 09/03/21 03:41 09/03/21 04:18 General appearance: Present: no acute distress, well-nourished - EENT Eyes: Present: PERRL ENT: hearing intact, clear oral mucosa - Neck Neck: Present: supple, normal ROM - Respiratory Respiratory effort: normal Respiratory: bilateral: CTA - Cardiovascular Heart rate: 98 Rhythm: irregularly irregular Heart Sounds: Present: S1 & S2. Absent: rub, click - Extremities Extremities: no ischemia, pulses symmetrical, No edema Peripheral Pulses: within normal limits - Abdominal General gastrointestinal: Present: soft, non-tender, non-distended, normal bowel sounds Male genitourinary: Present: normal - Rectal Rectal Exam: stool dark - Integumentary Integumentary: Present: clear, warm, dry - Musculoskeletal Musculoskeletal: gait normal, strength equal bilaterally - Psychiatric Psychiatric: appropriate mood/affect, intact judgment & insight - Neurologic Neurologic: CNII-XII intact, moves all extremities - Allied Health Allied health notes reviewed: nursing, case management Results - Labs CBC & Chem 7: 09/03/21 01:04 09/02/21 10:07 Labs: Laboratory Last Values WBC 10.8 K/mm3 (4.5-11.0) 09/02/21 10:07 RBC 4.89 M/mm3 (3.65-5.03) 09/02/21 10:07 Hgb 15.1 gm/dl (11.8-15.2) 09/03/21 01:04 Hct 45.2 % (35.5-45.6) 09/03/21 01:04 MCV 87 fl (84-94) 09/02/21 10:07 MCH 31 pg (28-32) 09/02/21 10:07 MCHC 35 % (32-34) H 09/02/21 10:07 RDW 15.3 % (13.2-15.2) H 09/02/21 10:07 Plt Count 179 K/mm3 (140-440) 09/02/21 10:07 PT 111.2 Sec. (12.2-14.9) H 09/02/21 10:07 INR 12.21 (0.87-1.13) H* 09/02/21 10:07 APTT 99.8 Sec. (24.2-36.6) H* 09/02/21 10:07 Sodium 137 mmol/L (137-145) 09/02/21 10:07 Potassium 5.0 mmol/L (3.6-5.0) 09/02/21 10:07 Chloride 101.5 mmol/L (98-107) 09/02/21 10:07 Carbon Dioxide 23 mmol/L (22-30) 09/02/21 10:07 Anion Gap 18 mmol/L 09/02/21 10:07 BUN 12 mg/dL (9-20) 09/02/21 10:07 Creatinine 0.8 mg/dL (0.8-1.3) 09/02/21 10:07 Estimated GFR > 60 ml/min 09/02/21 10:07 BUN/Creatinine Ratio 15 % 09/02/21 10:07 Glucose 124 mg/dL (75-100) H 09/02/21 10:07 Calcium 9.6 mg/dL (8.4-10.2) 09/02/21 10:07 Blood Type O POSITIVE 09/02/21 12:01 Antibody Screen Negative 09/02/21 12:01 Short CBC 09/02/21 09/03/21 Range/Units 10:07 01:04 WBC 10.8 (4.5-11.0) K/mm3 Hgb 15.0 15.1 (11.8-15.2) gm/dl Hct 42.5 45.2 (35.5-45.6) % Plt Count 179 (140-440) K/mm3 BMP 09/02/21 10:07 Sodium 137 Potassium 5.0 Chloride 101.5 Carbon Dioxide 23 BUN 12 Creatinine 0.8 Glucose 124 H Calcium 9.6 Wharton/IV: Voiding Method Urinal Assessment and Plan Advance Directives: Yes (Full code) VTE prophylaxis?: Chemical Plan of care discussed with patient/family: Yes - Patient Problems (1) Upper GI bleed Current Visit: Yes Status: Acute Plan to address problem: Patient initiated on IV Protonix drip IV fluids GI consult for possible endoscopy Monitor hemoglobin and hematocrit Transfuse if necessary (2) Subconjunctival hemorrhage of right eye Current Visit: Yes Status: Acute Plan to address problem: Should resolve by itself Conservative treatment (3) Systolic heart failure Current Visit: No Status: Chronic Qualifiers: Heart failure chronicity: chronic Qualified Code(s): I50.22 - Chronic systolic (congestive) heart failure Plan to address problem: Continue Lasix Echocardiogram for ejection fraction (4) Hypertension Current Visit: No Status: Chronic Plan to address problem: Oral blood pressure medications on hold Catapres patch initiated Blood pressure medicines to be resumed once patient has started eating (5) A-fib Current Visit: Yes Status: Chronic Qualifiers: Atrial fibrillation type: persistent (not longstanding) Qualified Code(s): I48.19 - Other persistent atrial fibrillation; I48.1 - Persistent atrial fibrillation Plan to address problem: Patient on excessive dose of Coumadin Coumadin stopped Patient given vitamin K and FFP's Recheck pro time Start on Eliquis depending on GI recommendations (6) Coagulopathy Current Visit: Yes Status: Acute Plan to address problem: Patient was given vitamin K and FFP's to correct the pro time Pro time is very high (7) GERD (gastroesophageal reflux disease) Current Visit: Yes Status: Chronic Qualifiers: Esophagitis presence: with esophagitis Esophagitis bleeding: with hemorrhage Qualified Code(s): K21.01 - Gastro-esophageal reflux disease with esophagitis, with bleeding Plan to address problem: Patient on IV Protonix (8) DVT prophylaxis Current Visit: Yes Status: Acute Plan to address problem: On SCDs and GI prophylaxis (9) Advance care planning Current Visit: Yes Status: Acute Plan to address problem: Disease education conducted, disease education conducted, care plan discussed, diagnosis discussed, prognosis discussed. Patient is full code. Patient acknowledges understanding and agreement with care plan. +30 minutes.
--- NOTE | 2021-09-03 07:51 | Progress Note ---
Assessment and Plan Assessment and plan: #Upper GI bleed #Coagulopathy #Warfarin toxicity -initial INR 12, repeat ordered -will resume apixaban for AC once stable -protonix IV -GI consulted, assistance appreciated #Subconjunctival hemorrhage of right eye -likely secondary to warfarin toxicity -vision unaffected -should self resolve #Heart failure with reduced ejection fraction, chronic -resume BB, spironolactone, ACEi -holding lasix for now, will resume at discharge #Hypertension -resume home BP medications #Atrial fibrillation -was on eliquis outpatient for AC Coumadin stopped Patient given vitamin K and FFP's Recheck pro time Start on Eliquis depending on GI recommendations (6) Coagulopathy Current Visit: Yes Status: Acute Plan to address problem: Patient was given vitamin K and FFP's to correct the pro time Pro time is very high (7) GERD (gastroesophageal reflux disease) Current Visit: Yes Status: Chronic Qualifiers: Esophagitis presence: with esophagitis Esophagitis bleeding: with hemorrhage Qualified Code(s): K21.01 - Gastro-esophageal reflux disease with esophagitis, with bleeding Plan to address problem: Patient on IV Protonix (8) DVT prophylaxis Current Visit: Yes Status: Acute Plan to address problem: On SCDs and GI prophylaxis (9) Advance care planning Current Visit: Yes Status: Acute Plan to address problem: Disease education conducted, disease education conducted, care plan discussed, diagnosis discussed, prognosis discussed. Patient is full code. Patient acknowledges understanding and agreement with care plan. +30 minutes. Hospitalist Physical - Constitutional Vitals: Temp Pulse Resp BP Pulse Ox 98.6 F 17 L 17 140/77 98 09/03/21 06:40 09/03/21 06:40 09/03/21 06:40 09/03/21 06:40 09/03/21 06:40 General appearance: Present: no acute distress, well-nourished Results - Labs CBC & Chem 7: 09/03/21 16:37 09/03/21 09:07 Labs: Laboratory Last Values WBC 10.8 K/mm3 (4.5-11.0) 09/02/21 10:07 RBC 4.89 M/mm3 (3.65-5.03) 09/02/21 10:07 Hgb 15.1 gm/dl (11.8-15.2) 09/03/21 01:04 Hct 45.2 % (35.5-45.6) 09/03/21 01:04 MCV 87 fl (84-94) 09/02/21 10:07 MCH 31 pg (28-32) 09/02/21 10:07 MCHC 35 % (32-34) H 09/02/21 10:07 RDW 15.3 % (13.2-15.2) H 09/02/21 10:07 Plt Count 179 K/mm3 (140-440) 09/02/21 10:07 PT 111.2 Sec. (12.2-14.9) H 09/02/21 10:07 INR 12.21 (0.87-1.13) H* 09/02/21 10:07 APTT 99.8 Sec. (24.2-36.6) H* 09/02/21 10:07 Sodium 137 mmol/L (137-145) 09/02/21 10:07 Potassium 5.0 mmol/L (3.6-5.0) 09/02/21 10:07 Chloride 101.5 mmol/L (98-107) 09/02/21 10:07 Carbon Dioxide 23 mmol/L (22-30) 09/02/21 10:07 Anion Gap 18 mmol/L 09/02/21 10:07 BUN 12 mg/dL (9-20) 09/02/21 10:07 Creatinine 0.8 mg/dL (0.8-1.3) 09/02/21 10:07 Estimated GFR > 60 ml/min 09/02/21 10:07 BUN/Creatinine Ratio 15 % 09/02/21 10:07 Glucose 124 mg/dL (75-100) H 09/02/21 10:07 Calcium 9.6 mg/dL (8.4-10.2) 09/02/21 10:07 Blood Type O POSITIVE 09/02/21 12:01 Antibody Screen Negative 09/02/21 12:01 Wharton/IV: Voiding Method Urinal Active Medications - Current Medications Current Medications: Generic Name Dose Route Start Last Admin Trade Name Freq PRN Reason Stop Dose Admin Acetaminophen 650 mg 09/02/21 14:39 Acetaminophen 325 Mg Tab PO Q4H PRN Pain MILD(1-3)/Fever >100.5/RIVAS Clonidine HCl 0.2 mg 09/02/21 21:30 09/02/21 22:13 Clonidine Tts 0.2 Mg/24 Hr Patch TD 0.2 mg Sa HINA Administration Hydromorphone HCl 0.5 mg 09/02/21 14:39 Hydromorphone 1 Mg/1 Ml Inj IV Q3H PRN Pain , Severe (7-10) Pantoprazole Sodium 80 mg/ 100 mls @ 10 mls/hr 09/02/21 12:00 09/02/21 23:51 Sodium Chloride IV 8 mg/hr DIRECT HINA 10 mls/hr Administration 8 MG/HR Dextrose/Sodium Chloride 1,000 mls @ 75 mls/hr 09/02/21 15:00 09/02/21 22:45 D5ns IV 75 mls/hr DIRECT HINA Administration Metoclopramide HCl 10 mg 09/02/21 14:39 Metoclopramide 10 Mg/2 Ml Inj IV Q6H PRN Nausea And Vomiting Morphine Sulfate 2 mg 09/02/21 14:39 09/02/21 20:11 Morphine 2 Mg/1 Ml Inj IV 2 mg Q4H PRN Administration Pain, Moderate (4-6) Ondansetron HCl 4 mg 09/02/21 14:39 09/02/21 15:07 Ondansetron 4 Mg/2 Ml Inj IV 4 mg Q3H PRN Administration Nausea And Vomiting Sodium Chloride 10 ml 09/02/21 22:00 09/02/21 23:11 Sodium Chloride 0.9% 10 Ml Flush Syringe IV 10 ml BID HINA Administration Sodium Chloride 10 ml 09/02/21 14:39 Sodium Chloride 0.9% 10 Ml Flush Syringe IV PRN PRN LINE FLUSH
[2021-09-03 09:26] LABS: Basophils # (Auto) 0.1 K/mm3 (0.0-0.1); Basophils % (Auto) 0.8 % (0.0-1.8); Eosinophils # (Auto) 0.7 K/mm3 (0.0-0.4); Eosinophils % (Auto) 8.1 % (0.0-4.3); Hematocrit 35.2 % (35.5-45.6); Hemoglobin 12.1 gm/dl (11.8-15.2); Lymphocytes % (Auto) 25.2 % (13.4-35.0); Mean Corpuscular HGB Conc 34 % (32-34); Mean Corpuscular Volume 87 fl (84-94); Monocytes # (Auto) 0.7 K/mm3 (0.0-0.8); Monocytes % (Auto) 9.2 % (0.0-7.3); Platelet Count 156 K/mm3 (140-440); Red Blood Count 4.05 M/mm3 (3.65-5.03); Red Cell Distribution Width 15.1 % (13.2-15.2)
[2021-09-03 09:49] LABS: Alanine Aminotransferase 22 units/L (7-56); Albumin 3.4 g/dL (3.9-5); BUN/Creatinine Ratio 16; Blood Urea Nitrogen 16 mg/dL (9-20); Hemolysis Index 7
[2021-09-03 09:56] LABS: INR 1.28 (0.87-1.13)
[2021-09-03] MEDS: PANTOPRAZOLE 80 MG in SODIUM CHLORIDE 0.9% 100 ML IV SCH ×2 (10:48→22:35)
--- NOTE | 2021-09-03 11:50 | Electrocardiograph Report ---
[facility] Test Date: 2021-09-02 Test Time: 10:17:14 Pat Name: MIHAELA JIMÉNEZ Department: Room: A362 Gender: M Take Down Sorter: FRANCOIS : 1965 Requested By: CARLOS JONES Order Number: [id number] Reading MD: Keith Ruiz Measurements Intervals [place] Rate: 75 P: 41 TX: 179 QRS: -46 QRSD: 107 T: 54 QT: 406 QTc: 453 Interpretive Statements Sinus rhythm Left anterior fascicular block Probable anteroseptal infarct, old Compared to ECG 03/30/2021 22:05:22 Left anterior fascicular block now present Myocardial infarct finding now present Atrial flutter no longer present Electronically Signed On 09-03-2021 11:50:11 EST by Keith Ruiz
--- NOTE | 2021-09-03 14:11 | Gastroenterology Consultation ---
History of Present Illness - Reason for Consult Consult date: 09/03/21 Coffee-ground emesis Requesting physician: ARIS LEPE - History of Present Illness This is a pleasant 56-year-old gentleman recently incarcerated (he reports he is now released and no longer incarcerated, brought in for bleeding specifically for coffee-ground emesis Coag severely elevated on admission as patient on blood thinners without monitoring Was even reportedly having bleeding with brushing of his gums When I spoke to him today he reports no bowel movements in the last 24 hours Reports his last bowel movement was about 2 days ago was brown Reports his last colonoscopy was about 10 years ago he believes it was normal was done back in [place] Denies any melena Repeat coags improved after FFP. Hemoglobin still within normal limits. Patient reports feeling well and wants to eat Obtained/updated/reviewed patient's current medications Past History Past Medical History: other (Atrial fibrillation status post cardioversion) Past Surgical History: Other (Cardioversion) Social history: no significant social history Family history: no significant family history Medications and Allergies Allergies Allergy/AdvReac Type Severity Reaction Status Date / Time lisinopril Allergy Angioedema Verified 01/08/21 16:14 Home Medications Medication Instructions Recorded Confirmed Last Taken Type Apixaban [Eliquis] 5 mg PO Q12HR #60 tablet 04/04/21 09/03/21 08/03/21 21:00 Rx Famotidine [Pepcid] 20 mg PO BID #60 tablet 04/04/21 Unknown Rx Furosemide [Lasix TAB] 40 mg PO QDAY #30 tablet 04/04/21 09/03/21 08/03/21 09:00 Rx Losartan [Cozaar] 50 mg PO QDAY #30 tablet 04/04/21 Unknown Rx Metoprolol [Lopressor TAB] 50 mg PO BID #60 tablet 04/04/21 Unknown Rx Acetaminophen [Tylenol] 1,000 mg PO BID 09/02/21 09/02/21 Unknown History Apixaban [Eliquis] 5 mg PO BID 09/02/21 09/02/21 08/03/21 21:00 History Hydralazine HCl 100 mg PO BID 09/02/21 09/02/21 Unknown History Omeprazole 20 mg PO DAILY 09/02/21 09/02/21 Unknown History Omeprazole 40 mg PO QDAY 09/02/21 09/03/2108/03/22 09:00 History Warfarin [Coumadin] 5 mg PO QHS 09/02/21 09/02/21 Unknown History amLODIPine 5 mg PO DAILY 09/02/21 09/02/21 Unknown History Spironolactone [Aldactone] 25 mg PO QDAY 09/03/21 09/03/21 08/03/21 09:00 History carvediloL [Coreg] 25 mg PO BID 09/03/21 09/03/21 08/03/21 21:00 History Active Meds: Active Medications Acetaminophen (Acetaminophen 325 Mg Tab) 650 mg PO Q4H PRN PRN Reason: Pain MILD(1-3)/Fever >100.5/RIVAS Amlodipine Besylate (Amlodipine 5 Mg Tab) 5 mg PO DAILY [facility] Carvedilol (Carvedilol 25 Mg Tab) 25 mg PO BID [facility] Hydromorphone HCl (Hydromorphone 1 Mg/1 Ml Inj) 0.5 mg IV Q3H PRN PRN Reason: Pain , Severe (7-10) Pantoprazole Sodium 80 mg/ (Sodium Chloride) 100 mls @ 10 mls/hr IV DIRECT [facility] Last Admin: 09/03/21 10:48 Dose: 8 mg/hr, 10 mls/hr Metoclopramide HCl (Metoclopramide 10 Mg/2 Ml Inj) 10 mg IV Q6H PRN PRN Reason: Nausea And Vomiting Morphine Sulfate (Morphine 2 Mg/1 Ml Inj) 2 mg IV Q4H PRN PRN Reason: Pain, Moderate (4-6) Last Admin: 09/02/21 20:11 Dose: 2 mg Ondansetron HCl (Ondansetron 4 Mg/2 Ml Inj) 4 mg IV Q3H PRN PRN Reason: Nausea And Vomiting Last Admin: 09/02/21 15:07 Dose: 4 mg Sodium Chloride (Sodium Chloride 0.9% 10 Ml Flush Syringe) 10 ml IV BID [facility] Last Admin: 09/02/21 23:11 Dose: 10 ml Sodium Chloride (Sodium Chloride 0.9% 10 Ml Flush Syringe) 10 ml IV PRN PRN PRN Reason: LINE FLUSH Spironolactone (Spironolactone 25 Mg Tab) 25 mg PO QDAY [facility] Review of Systems - Review of Systems All systems: negative (10 Systems reviewed and negative except as mentioned above in the history of present illness) Exam - Constitutional Vital Signs: Temp Pulse Resp BP Pulse Ox 98.6 F 57 L 22 157/91 98 09/03/21 11:13 09/03/21 11:13 09/03/21 11:13 09/03/21 11:13 09/03/21 11:13 General appearance: no acute distress - EENT Eyes: EOM intact, other (Right eye conjunctival hemorrhage) ENT: hearing intact - Neck Neck: supple - Respiratory Respiratory effort: normal - Cardiovascular Rhythm: regular - Gastrointestinal General gastrointestinal: Present: soft, non-tender - Integumentary Integumentary: Present: dry - Musculoskeletal Musculoskeletal: normal - Neurologic Neurological: alert and oriented x3 - Psychiatric Psychiatric: appropriate mood/affect - Labs CBC & Chem 7: 09/03/21 09:07 09/03/21 09:07 Lab Results: Laboratory Results - last 24 hr 09/02/21 09/03/21 09/03/21 12:01 01:04 09:07 WBC 8.1 RBC 4.05 Hgb 15.1 12.1 D Hct 45.2 35.2 L D MCV 87 MCH 30 MCHC 34 RDW 15.1 Plt Count 156 Lymph % (Auto) 25.2 [place] % (Auto) 9.2 H Eos % (Auto) 8.1 H Baso % (Auto) 0.8 Lymph # (Auto) 2.0 [place] # (Auto) 0.7 Eos # (Auto) 0.7 H Baso # (Auto) 0.1 Seg Neutrophils % 56.7 Seg Neutrophils # 4.6 PT INR Sodium Potassium Chloride Carbon Dioxide Anion Gap BUN Creatinine Estimated GFR BUN/Creatinine Ratio Glucose Calcium Total Bilirubin AST ALT Alkaline Phosphatase Total Protein Albumin Albumin/Globulin Ratio Blood Type O POSITIVE Antibody Screen Negative 09/03/21 09/03/21 09:07 09:07 WBC RBC Hgb Hct MCV MCH MCHC RDW Plt Count Lymph % (Auto) [place] % (Auto) Eos % (Auto) Baso % (Auto) Lymph # (Auto) [place] # (Auto) Eos # (Auto) Baso # (Auto) Seg Neutrophils % Seg Neutrophils # PT 17.5 H INR 1.28 H Sodium 142 Potassium 3.7 D Chloride 108.2 H Carbon Dioxide 22 Anion Gap 16 BUN 16 Creatinine 1.0 Estimated GFR > 60 BUN/Creatinine Ratio 16 Glucose 94 Calcium 9.0 Total Bilirubin 2.50 H AST 25 ALT 22 Alkaline Phosphatase 108 Total Protein 6.4 Albumin 3.4 L Albumin/Globulin Ratio 1.1 Blood Type Antibody Screen Assessment and Plan With reversal of the Coumadin no more overt bleeding Presentation consistent with Coumadin toxicity rather than primary GI bleeding especially given stability of hemoglobin Therefore from GI standpoint patient does not require inpatient endoscopic evaluation GI will sign off patient can follow-up with his as an outpatient where he can undergo evaluation for routine screening colonoscopy - Patient Problems (1) Coagulopathy Current Visit: Yes Status: Acute (2) Coumadin toxicity Current Visit: Yes Status: Acute Qualifiers: Encounter type: initial encounter Injury intent: accidental or unintentional Qualified Code(s): T45.511A - Poisoning by anticoagulants, accidental (unintentional), initial encounter (3) Upper GI bleed Current Visit: Yes Status: Acute (4) A-fib Current Visit: Yes Status: Chronic Qualifiers: Atrial fibrillation type: persistent (not longstanding) Qualified Code(s): I48.19 - Other persistent atrial fibrillation; I48.1 - Persistent atrial fibrillation (5) Obesity (BMI 30-39.9) Current Visit: No Status: Chronic
[2021-09-03] MEDS: amLODIPine 5 MG TAB PO SCH (15:21)
[2021-09-03] MEDS: SPIRONOLACTONE 25 MG TAB PO SCH (15:22)
[2021-09-03 17:03] LABS: Hematocrit 34.6 % (35.5-45.6); Hemoglobin 12.2 gm/dl (11.8-15.2)
[2021-09-03] MEDS: APIXABAN 5 MG TAB PO SCH (22:19)
[2021-09-03] MEDS: carvediloL 25 MG TAB PO SCH (22:22)
[2021-09-04 07:48] LABS: INR 1.96 (0.87-1.13)
[2021-09-04] MEDS ORDERED: PANTOPRAZOLE 40 MG TAB PO SCH (08:00)
--- NOTE | 2021-09-04 08:15 | Discharge Summary ---
Providers - Providers Date of Admission: 09/02/21 14:39 Attending physician: DEV CHERY MD 09/02/21 14:39 Consult to Physician [CONS] Routine Comment: Consulting Provider: SOHAM BARRAZA Physician Instructions: Reason For Exam: GI Hemorrhage Hospitalization Condition: Stable Exam - Constitutional Vitals: Temp Pulse Resp BP Pulse Ox 98.1 F 51 L 17 107/63 100 09/04/21 05:57 09/04/21 05:57 09/04/21 05:57 09/04/21 05:57 09/04/21 05:57 Plan Care Plan Goals: Please follow-up with your primary care provider and outside software technician. Restart taking Eliquis as prescribed in the past. Also please start taking the medications as stated in the discharge packet. Follow up with: AARON GARCIAS [Other] - 3-5 Days Forms: Accompanied Note Prescriptions: Spironolactone [Aldactone] 25 mg PO QDAY 30 Days #30 tab carvediloL [Coreg] 25 mg PO BID 30 Days #60 tab Losartan [Cozaar] 50 mg PO QDAY 30 Days #30 tablet Apixaban [Eliquis] 5 mg PO Q12HR 30 Days #60 tablet Furosemide [Lasix TAB] 40 mg PO QDAY 30 Days #30 tablet
[2021-09-04] MEDS: APIXABAN 5 MG TAB PO SCH (10:06)
[2021-09-04] MEDS: SPIRONOLACTONE 25 MG TAB PO SCH (10:06)
[2021-09-04] MEDS: amLODIPine 5 MG TAB PO SCH (10:12)
[2021-09-04 10:19] VITALS: BP 128/70
[2021-09-04] MEDS: carvediloL 25 MG TAB PO SCH (10:30)
== END 2021-09-04 13:31 | disposition home or self-care (01) | DRG 378 ==
LOC: EDUNIT# → ED 09:35 → 3A 14:39
PROVIDERS: ADMIT Internal Medicine; ATTEND Student in an Organized Health Care Education/Training Program
PROC: 30233K1 Transfusion of Nonautologous Frozen Plasma into Peripheral Vein, Percutaneous Approach (ICD-10-PCS; principal; 2021-09-03)
DX: K92.2 Gastrointestinal hemorrhage, unspecified (principal); I50.22 Chronic systolic (congestive) heart failure; I48.19 Other persistent atrial fibrillation; K21.01 Gastro-esophageal reflux disease with esophagitis, with bleeding; H57.89 Other specified disorders of eye and adnexa; T45.515A Adverse effect of anticoagulants, initial encounter; Y92.89 Other specified places as the place of occurrence of the external cause; H11.31 Conjunctival hemorrhage, right eye; I11.0 Hypertensive heart disease with heart failure; Z82.49 Family history of ischemic heart disease and other diseases of the circulatory system; Z88.8 Allergy status to other drugs, medicaments and biological substances; Z68.34 Body mass index [BMI] 34.0-34.9, adult
CPT/HCPCS: 36415; 80048; 80053; 85014; 85018; 85025; 85027; 85610; 85730; 86850; 86900; 86901; 93005; 93010; G0378; J3490; C9113; J2270; J2405; J3430; J7040; J7042; P9017